=== PATIENT | male | born 1980 | race Caucasian/White ===

== ENCOUNTER 2023-04-28 18:19 | Emergency (ER) | payer OTHER, SELFPAY ==
[2023-04-28] VITALS (20 sets, daily range): BP systolic 121–158; BP diastolic 73–95; PULSE 53–65; RESP 18; TEMP 36.6; O2SAT 96–100; BMI 29.0
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
--- NOTE | 2023-04-28 19:12 | ED.NURSE ---
[facility] paged.
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
--- NOTE | 2023-04-28 21:31 | ED.NURSE ---
pt given water, OK'd per MD
== END 2023-04-28 22:41 | disposition home or self-care (01) ==
PROVIDERS: Emergency Provider Emergency Medicine Emergency Medical Services
DX: S13.4XXA Sprain of ligaments of cervical spine, initial encounter (principal); V43.52XA Car driver injured in collision with other type car in traffic accident, initial encounter; H53.8 Other visual disturbances
CPT/HCPCS: 70450; 70544; 70551; 72125; 99284; 99285; 99291; G0390

== ENCOUNTER 2024-03-29 09:37 | Outpatient (CLI) | payer OTHER, SELFPAY | END 2024-03-29 09:38 | disposition home or self-care (01) | PROVIDERS: Visit Provider Family Medicine | DX: Z00.00 Encounter for general adult medical examination without abnormal findings (principal); R73.9 Hyperglycemia, unspecified; S06.9XAA Unspecified intracranial injury with loss of consciousness status unknown, initial encounter | CPT/HCPCS: 80053; 80061 ==

== ENCOUNTER 2024-04-16 11:19 | Outpatient (CLI) | payer OTHER, SELFPAY ==
--- NOTE | 2024-04-16 12:28 | W.ANESCHARGE ---
Anesthesia Charges Start Date/Time Anesthesia Start Date: 04/16/24 Anesthesia Start Time: 11:55 Stop Date/Time Anesthesia Stop Date: 04/16/24 Anesthesia Stop Time: 12:26
--- NOTE | 2024-04-16 12:35 | W.ANESCHARGE ---
Anesthesia Charges Start Date/Time Anesthesia Start Date: 04/16/24 Anesthesia Start Time: 11:55 Stop Date/Time Anesthesia Stop Date: 04/16/24 Anesthesia Stop Time: 12:26
== END 2024-04-16 11:20 | disposition home or self-care (01) ==
PROVIDERS: PCP Family Medicine; Visit Provider Surgery
DX: Z12.11 Encounter for screening for malignant neoplasm of colon (principal); D12.8 Benign neoplasm of rectum; K57.30 Diverticulosis of large intestine without perforation or abscess without bleeding
CPT/HCPCS: 00811; 45385; 88305; J2704

== ENCOUNTER 2024-05-07 15:45 | Outpatient (CLI) | payer OTHER, SELFPAY | END 2024-05-07 15:46 | disposition home or self-care (01) | LOC: NFLDREF 05-10 11:49 | PROVIDERS: PCP Family Medicine; Visit Provider Family Medicine | DX: E11.9 Type 2 diabetes mellitus without complications (principal) | CPT/HCPCS: 82043; 82570 ==

== ENCOUNTER 2024-06-18 16:29 | Outpatient (CLI) | payer OTHER, SELFPAY | END 2024-06-18 16:30 | disposition home or self-care (01) | PROVIDERS: PCP Family Medicine; Visit Provider Family Medicine | DX: D64.9 Anemia, unspecified (principal); E11.9 Type 2 diabetes mellitus without complications; I10 Essential (primary) hypertension | CPT/HCPCS: 80048; 82607; 82728; 83540 ==

== ENCOUNTER 2024-08-02 14:25 | Outpatient (CLI) | payer OTHER, SELFPAY | END 2024-08-02 14:26 | disposition home or self-care (01) | PROVIDERS: PCP Family Medicine; Visit Provider Family Medicine | DX: D64.9 Anemia, unspecified (principal); E11.9 Type 2 diabetes mellitus without complications; I10 Essential (primary) hypertension; Z12.5 Encounter for screening for malignant neoplasm of prostate; N40.0 Benign prostatic hyperplasia without lower urinary tract symptoms | CPT/HCPCS: 80053; 82728; 83540; 83550; G0103 ==

== ENCOUNTER 2024-09-17 16:57 | Emergency (ER) | payer OTHER, SELFPAY ==
[2024-09-17 17:09] VITALS: BP 147/75; PULSE 86; RESP 16; TEMP 36.9; O2SAT 98; BMI 30.3
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
[2024-09-17] MEDS: SIMETHICONE/SOD BICARB/CIT AC 1 EACH GRAN.EF.PK PO (17:40)
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
--- OUTSIDE RECORDS SUMMARY | 2024-09-17 17:41 | XMS_ITS | Encounter Summary ---
Author Organization [facility] Address [address], [place] [address] Care Team Providers Care Chief Innovation Officer Name Role Phone Unavailable Primary Care Provider Unavailabl e Reason for Visit * Reason Comments Removable Prosthetics Upper denture kelsey l impression Encounter Details Date Type Department Care Team (Late st Contact Info) Description 09/13/2024 12:10 PM CDT Office Visit [facility] Dental [facility] [address] [place] [phone] [facility] [address] [place] [address] Removable Prosthetics (Upper denture final impression) Social History Tobacco Use Types Packs/Day Years Used Date Smoking Tobacco: Every Day Cigarettes Smokeless Tobacco: Never Alcohol Use Standard Drinks/Week Comments No 0 (1 standard drink = 0.6 oz pur e alcohol) PHQ-2 Answer Date Recorded PHQ-2 Score 0 05/05/2023 Financial Resource Strain Answer Date R ecorded Is it hard for you to pay fo r the very basics like food, housing, medical care or heating? Yes 10/25/2023 Food Insecurity Answer Date Recorded Does your food run out before you have the money to buy more? No 10/25/2023 Transportation Needs Answer Date Record ed Does a lack of transportatio n keep you from your medical appointments or from getting your medications? 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 Use care to not bite, scratch, or injure the cheek, lips, or tongue during this time Bleeding Bleeding was controlled prior to discharge, but some occasional oozing (pink or blood-tinged saliva) may occur. Hold gauze with firm pressure against the surgical site until oozing has stopped. You may need to change the gauze or repeat this step. If bleeding continues for more than two hours, contact us. Surgical Site Care Today, do not disturb the surgical site. Do not stretch the lips or cheeks to look at the area. Do not rinse vigorously, use mouthwash, or probe the area with fingers or other objects. Beginning tomorrow, you may rinse with warm salt water (?? teaspoon salt with one cup water) after meals. Sutures Sutures (stitches) were placed to help control bleeding and promote healing. These sutures are no .If the stitches come out during the first 48 hours, call our office. Daily Activities Today, avoid physical exercise and exertion. Return to normal activities as tolerated. Smoking is never good for one???s health and may delay healing following oral surgery. Diet After all bleeding has stopped, the patient may drink cool non-carbonated liquids but should NOT use a straw. Encourage fluids to help avoid dehydration. Cold soft foods (e.g., ice cream, gelatin, Instant Breakfast??, Ensure??, pudding, yogurt) are ideal the first day. By the second day, consistency of foods can progress as tolerated. Until healing is more established, avoid foods such as nuts, sunflower seeds, and popcorn that may get lodged in the surgical areas. Oral Hygiene Keeping the mouth clean is essential. Today, teeth may be brushed and flossed gently, but avoid stimulating the surgical site. Soreness and swelling may not permit vigorous brushing of all areas, butplease make every effort to clean the teeth within the bounds of comfort. Pain Because some discomfort is expected, you may take acetaminophen (Tylenol??) or ibuprofen (Motrin??,Advil??) before the numbness wears off. Follow the instructions on the bottle for dosing. If pain is not relieved by these medications, a prescription may be needed. Take prescription pain medicationwith a small amount of food to avoid nausea. Prescription You were not prescribed any medications today. Things to watch for are: Swelling Slight swelling and inflammation may occur for the next two days. If swelling occurs, ice packs maybe used for the first 24 hours (10 minutes on then 10 minutes off) to decrease swelling and/or bruising. If swelling persists after 24 hours, warm/moist compresses (10 minutes on then 10 minutes off)may help. If swelling occurs after 48 hours, call our office. Fever A slight fever (temperature to 100.5??F) is not uncommon the first 48 hours after surgery. If a higher fever develops or the fever persists, call our office. Dry Socket Premature dissolving or loss of a blood clot following removal of a permanent tooth may result in a???dry socket?? . This typically occurs on the third to fifth day after the extraction, with a persistent throbbing pain in the jaw. Call our office if this occurs. Call your dental clinic at [phone] if you have questions or concerns. [facility] hours [facility] by calling [facility] at [phone], evenings and weekends. documented in this encounter Progress Notes * Daina Edwards DDS - 09/13/2024 12:10 PM CDT DENTAL VISIT NOTE Subjective Reason for Visit/Chief Complaint: Hossein is a 43 y.o. male who presents for Removable Prosthetics (Upper denture final impression) Chief Complaint: Toothache Objective/Assessment Chart Review: The following information was reviewed with the patient: Medical history, Dental history, Problem list, Periodontal charting, and Radiographs. Radiographic Interpretation: #2 Root stump Diagnosis: Encounter for fitting of dentures (primary encounter diagnosis) Prognosis: #2 Hopeless, Maxillary Favorable Plan Treatment Discussion: I discussed the Dental findings, Prognosis, Treatment options, Risks and complications associated with procedure, and Billing/Treatment estimate with the patient. All questions answered and the patient gave informed consent to proceed with dental treatment/services. Procedural Pause: Patient identity verified: Yes Treatment plan/site verified with the patient: Yes Instruments/equipment verified: Yes Any medication/allergy contraindications: No Completed Procedures: Anesthesia: Topical with 20% benzocaine 1.0 carpules 4% septocaine with 1:100,000 epinephrine was administered with infiltration and PDL in#2 No adverse side effects observed. Anesthesia was administered by Daina Edwards DDS . Removable Prosthesis, Preparation and Delivery: Initial placement Patient presented for maxillary immediate denture Final impression made with polyvinyl siloxane material Patient concerns: None Other concerns: None Next visit: Bite registration Consent: Reviewed verbally with the patient Post-Op Instructions: Patient was advised of normal post-operative instructions and potential for post-operative sensitivity Oral Surgical Services, Extraction #2: Preoperative blood pressure was taken and recorded 145/86 P 70 Site of surgery: Verified with the patient Flap: N/A Bone removal: N/A Section: N/A Alveoplasty: No Irrigation: Sterile saline and chlorhexidene Sutures: None Hemostasis obtained Patient tolerated the procedure : Complications: None Postoperative blood pressure was taken and recorded 152/90 P 63 Post-Op Instructions: Reviewed verbally and in writing with the patient: The mouth will be numb approximately two to four hours. If oozing occurs hold gauze with firm pressure against surgical site until oozing has stopped. Contact us if bleeding continues for more than two hours. Do not disturb surgical site Rinse with warm salt water beginning tomorrow after meals. Sutures were placed to help control bleeding and promote healing. Avoid physical exercise and exertion today (resume normal activities as tolerated). Smoking may delay healing. Drink cool non-carbonated liquids (no straws) after all bleeding has stopped. Cold soft foods are ideal first day, consistency of foods can progress by 2nd day as tolerated. Avoid foods such as nuts, sunflower seeds, and popcorn until healing is more established. Teeth may be brushed and flossed gently but avoid stimulating the surgical site. 600 mg Ibuprofen and 1000 mg Acetaminophen at six hour intervals. Advised not to take more than 2400 mg of Ibuprofen or 3000 mg of Acetaminophen in a 24-hour period recommended. No Medications ordered this encounter Care was assisted by Nayana Next Planned Visit: Bite registration Daina Edwards DDS 09/13/2024, 1:19 PM CC: Jeannine documented in this encounter Plan of Treatment Upcoming Encounters Date Type Department Care Team (Late st Contact Info) Description 09/20/2024 12:10 PM CDT Appointment [facility] [address] [place] [phone] Daina Edwards DDS [address] [place] [address] 10/01/2024 12:10 PM CDT Appointment [facility] [address] [place] [phone] Daina Edwards DDS [address] [place] [address] 10/11/2024 10:50 AM CDT Appointment Oral Surgery at [facility] [address] [place] [address] Dick Franklin DDS [address] [place] [address] 10/29/2024 12:10 PM CDT Appointment [facility] [address] [place] [phone] Daina Edwards DDS [address] [place] [address] documented as of this encounter Procedures Procedure Name Priority Date/Time Associated Diagnosis Comments 2 EXTRACTION-ERUPTED TOOTH OR EXPOSED RT Routine 09/13/2024 12:10 PM CDT Retained tooth root Max DENTURE-IMMEDIATE UPPER Routine 09/13/2024 12:10 PM CDT Encounter for fitting of dentures documented in this encounter Visit Diagnoses Diagnosis Encounter for fitting of dentures- Primary Fitting and adjustment of dental prosthetic device Fracture of crown and root of tooth Retained tooth root Retained dental root documented in this encounter
--- OUTSIDE RECORDS SUMMARY | 2024-09-17 17:41 | XMS_ITS | Encounter Summary ---
Author Organization [facility] Address [address] [address] Care Team Providers Care Chief Of Safety And Protection Name Role Phone Unavailable Primary Care Provider Unavailabl e Reason for Visit * Reason Comments Removable Prosthetics Impressions for ma xillary immediate dentures Encounter Details Date Type Department Care Team (Late st Contact Info) Description 09/04/2024 8:10 AM CDT Office Visit [facility] [place] [address] [place] [phone] [facility] [address] [place] [address] Removable Prosthetics (Impressions for maxillary immediate dentures ) Social History Tobacco Use Types Packs/Day Years [...] PM CDT Legal 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 male who presents for Removable Prosthetics (Impressions for maxillary immediate dentures ) Chief Complaint: No CC Objective/Assessment Chart Review: The following information was reviewed with the patient: Medical history, Dental history, Problem list, Periodontal charting, and Radiographs. Diagnosis: Encounter for fitting of dentures (primary encounter diagnosis) Prognosis: Maxillary Favorable Plan Treatment Discussion: I discussed the Dental findings, Prognosis, Treatment options, Risks and complications associated with procedure, and Billing/Treatment estimate with the patient. All questions answered and the patient gave informed consent to proceed with dental treatment/services. Procedural Pause: Patient identity verified: Yes Treatment plan/site verified with the patient: Yes Instruments/equipment verified: Yes Any medication/allergy contraindications: No Completed Procedures: Anesthesia: None used , procedure was minimally invasive. . Removable Prosthesis, Preparation and Delivery: Initial placement Patient presented for maxillary immediate denture Primary impression made with alginate material Patient concerns: None Other concerns: None Next visit: Final impression Consent: N/A Post-Op Instructions: Patient was advised of normal post-operative instructions, potential for post-operative sensitivity, and the need to exercise care because of the risk of fracture Care was assisted by Maria G Next Planned Visit: final Impressions Daina Edwards DDS 09/04/2024, 9:49 AM CC: Jeannine documented in this encounter Plan of Treatment Upcoming Encounters Date Type Department Care Team (Late st Contact Info) Description 09/20/2024 12:10 PM CDT Appointment [facility] [place] [address] [place] [phone] Daina Edwards DDS [address] [place] [id number] 10/01/2024 12:10 PM CDT Appointment [facility] [address] [place] [phone] Daina Edwards DDS [address] [place] [address] 10/11/2024 10:50 AM CDT Appointment Oral Surgery at [facility] [address] [place] [address] Dick Franklin, JENAES [address] [place] [address] 10/29/2024 12:10 PM CDT Appointment [facility] [address] [place] [phone] Daina Edwards DDS [address] [place] [address] documented as of this encounter Procedures Procedure Name Priority Date/Time Associated Diagnosis Comments DENTURE PREP Routine 09/04/2024 8:10 AM CDT Encounter for fitting of dentures DENTURE PREP Routine 09/04/2024 8:10 AM CDT Encounter for fitting of dentures documented in this encounter Visit Diagnoses Diagnosis Encounter for fitting of dentures- Primary Fitting and adjustment of dental prosthetic device documented in this encounter
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
--- OUTSIDE RECORDS SUMMARY | 2024-09-17 17:41 | XMS_ITS | Encounter Summary ---
Author Organization [facility] Address [address] [place] [address] Care Team Providers Care Lamp Shade Assembler Name Role Phone Thor Aguilar MD Primary Care Provider [phone] Encounter Details Date Type Department Care Team (Late Contact Info) Description 08/14/2014 Scanned History External to Transferred Record, Provider [facility] Social History Tobacco Use Types Packs/Day Years Used Date Smoking Tobacco: Every Day Smokeless Tobacco: Current Snuff Alcohol Use Standard Drinks/Week Comments No 0 (1 standard drink = 0.6 oz pur e alcohol) Sex and Gender Information Value Date Recorded Sex Assigned at Male 08/26/2024 11:28 PM CDT 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 Gender Identity Not on file Sexual Orientation Not on file documented as of this encounter Plan of Treatment Upcoming Encounters Date Type Department Care Team ([facility] Contact Info) Description 09/20/2024 12:10 PM CDT Appointment [facility] [address] [place] [phone] Daina Edwards DDS [address] [place] [address] 10/01/2024 12:10 PM CDT Appointment [facility] [address] [place] [phone] Daina Edwards DDS [address] [place], [place] [phone] 10/11/2024 10:50 AM CDT Appointment Oral Surgery at [facility] [address] [facility] [place] [address] Dick Franklin, DDS [address] [place] [address] 10/29/2024 12:10 PM CDT Appointment [facility] Dental [facility] [address] [place] [address] Daina Edwards, DDS [address] [place] [address] documented as of this encounter Visit Diagnoses Not on filedocumented in this encounter Care Teams Lamp Shade Assembler Relationship Specialty [place] [address] [place] [address] PCP - General Family Practice 06/02/23 12/08/23 documented as of this encounter
--- OUTSIDE RECORDS SUMMARY | 2024-09-17 17:41 | XMS_ITS | Encounter Summary ---
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 Gender Identity Not on file Sexual Orientation Not on file 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 Not on file Not on file documented as of this encounter Plan of Treatment Upcoming Encounters Date Type Department Care Team ([facility] Contact Info) Description 09/20/2024 12:10 PM CDT Appointment [facility] [place] [address] [place] [phone] Daina Edwards DDS [address] [place] [address] 10/01/2024 12:10 PM CDT Appointment [facility] [address] [place] [phone] Daina Edwards DDS [address] [place] [address] 10/11/2024 10:50 AM CDT Appointment Oral Surgery at [facility] [address] [address] Dick Franklin, JENAES [address] [place] [address] 10/29/2024 12:10 PM CDT Appointment [facility] [address] [place] [phone] Daina Edwards DDS [address] [place], [place] [phone] documented as of this encounter Visit Diagnoses Not on filedocumented in this encounter
--- OUTSIDE RECORDS SUMMARY | 2024-09-17 17:41 | XMS_ITS | Encounter Summary ---
Author Organization [facility] Address [address] [place] [address] Care Team Providers Care Paper Box Maker Name Role Phone Thor Aguilar MD Primary Care Provider [phone] Encounter Details Date Type Department Care Team ([facility] Contact Info) Description 07/01/2014 [facility] [address] [place] [address]. 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 Contact Info) Description 09/20/2024 12:10 PM CDT Appointment [facility] [address] [place] [phone] Daina Edwards DDS [address] [place], [place] [phone] 10/01/2024 12:10 PM CDT [facility] [address] [place] [address] Daina Edwards DDS [address] [place] [address] 10/11/2024 10:50 AM CDT Appointment Oral Surgery at [facility] [address] [address] Dick Franklin, DDS [address] [place] [address] 10/29/2024 12:10 PM CDT Appointment [facility] [address] [place] [address] Daina Edwards DDS [address] [place] [address] documented as of this encounter Visit Diagnoses Not on filedocumented in this encounter Care Teams Paper Box Maker Relationship Specialty [place] [address] [place] [address] PCP - General Family Practice 06/02/23 12/08/23 documented as of this encounter
--- OUTSIDE RECORDS SUMMARY | 2024-09-17 17:41 | XMS_ITS | Referral Summary ---
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 complex, unchanged. No spinal canal stenosis.Left uncovertebral hypertrophy and facet arthropathy. Moderate left neuralforaminal stenosis, unchanged. No right neural foraminal stenosis. C5-6: Trace disc osteophyte complex, unchanged. No spinal canal stenosis.Bilateral uncovertebral hypertrophy and facet arthropathy. Moderate rightand severe left neural foraminal stenosis, unchanged. C6-7: Disc osteophyte complex produces mass effect on the ventral thecalsac, unchanged. No significant spinal canal stenosis. Bilateraluncovertebral hypertrophy. Mild bilateral neural foraminal stenosis,unchanged. C7-T1: No spinal canal stenosis. Left uncovertebral hypertrophy. Mild leftneural foraminal stenosis. Improved, likely due to differences intechnique. No right neural foraminal stenosis. T1-2: No spinal canal or neural foraminal stenosis. T2-3: Disc osteophyte complex produces mass effect on ventral thecal sacwithout flattening the ventral cervical cord. Mild spinal canal stenosis.Bilateral facet arthropathy. Mild to moderate left neural foraminalstenosis. No right neural foraminal stenosis. IMPRESSION 1. Multilevel degenerative changes, as detailed above. No significantinterval progression. 2. No significant spinal canal stenosis at any cervical level. There ismild spinal canal stenosis at T2-3. 3. Moderate to severe multilevel neural foraminal stenosis, as detailedabove, unchanged. 4. Normal appearance of the cervical and upper thoracic spinal cord. Report signed by Pola Marin MD Juan Hernández MD MRI ORDERABLE Final Result * MRI BRAIN W/O&W CON (07/31/2024 6:46 PM MEDICAL DEVICE) Anatomical Region Laterality Modality Head Magnetic Resonan ce 08/01/2024 10:5 9 AM MEDICAL DEVICE Impressions 08/01/2024 11:04 AM MEDICAL DEVICE No significant intracranial abnormality is demonstrated, no interval change. Report signed by: Pola Marin MD Narrative 08/01/2024 11:04 AM MEDICAL DEVICE EXAM: BRAIN MRI WITHOUT AND WITH CONTRAST, 07/31/2024 CLINICAL DATA: ICD-10: M79.18 Myalgia, other site R20.9 Unspecified disturbances of skin sensation M62.81 Muscle weakness (generalized) COMPARISON: Outside MRI 06/28/2023 TECHNIQUE: Precontrast sagittal FLAIR T1; axial FLAIR T2, fat saturated FSE T2, DWI, T1, GRE. Postcontrast axial and coronal T1. CONTRAST: 9 ml Gadavist IV. FINDINGS: PARENCHYMA: No evidence of infarction. No significant white matter signal abnormality. No parenchymal hemorrhage. No mass or midline shift. Cerebellar tonsils are normally located. Normal parenchymal volume. No abnormal parenchymal or leptomeningeal enhancement. EXTRA-AXIAL SPACES: No extra-axial collection. No extra-axial mass. VENTRICLES: No hydrocephalus. VESSELS: The flow voids are normal. BONES: Unremarkable. ORBITS: No significant abnormality. PARANASAL SINUSES/MASTOID AIR CELLS: Predominantly clear. EXTRACRANIAL SOFT TISSUES: Unremarkable. Procedure Note Pola Marin MD - 08/01/2024 EXAM: BRAIN MRI WITHOUT AND WITH CONTRAST, 07/31/2024 CLINICAL DATA: ICD-10: M79.18 Myalgia, other site R20.9 Unspecified disturbances of skinsensation M62.81 Muscle weakness (generalized) COMPARISON: Outside MRI 06/28/2023 TECHNIQUE: Precontrast sagittal FLAIR T1; axial FLAIR T2, fat saturatedFSE T2, DWI, T1, GRE. Postcontrast axial and coronal T1. CONTRAST: 9 ml Gadavist IV. FINDINGS: PARENCHYMA: No evidence of infarction. No significant white matter signal abnormality.No parenchymal hemorrhage. No mass or midline shift. Cerebellar tonsilsare normally located. Normal parenchymal volume. No abnormal parenchymalor leptomeningeal enhancement. EXTRA-AXIAL SPACES: No extra-axial collection. No extra-axial mass. VENTRICLES: No hydrocephalus. VESSELS: The flow voids are normal. BONES: Unremarkable. ORBITS: No significant abnormality. PARANASAL SINUSES/MASTOID AIR CELLS: Predominantly clear. EXTRACRANIAL SOFT TISSUES: Unremarkable. IMPRESSION No significant intracranial abnormality is demonstrated, no intervalchange. Report signed by: Pola Marin MD Juan Hernández MD MRI ORDERABLE Final Result from Last 3 Months Insurance [employer] OPEN ACCESS/CHOICE MAURICE MARCIAL [id number] Care Teams Living Skills Advisor Relationship Specialty Start Date End Date David Lehman [address] [place] [address] PCP - General 05/10/24 Juan Hernández MD [address] [facility] [address] [place] [address] Neurology 05/10/24
--- OUTSIDE RECORDS SUMMARY | 2024-09-17 17:41 | XMS_ITS | Encounter Summary ---
Author Organization [facility] Address [address] [place] [address] Care Team Providers Care Area Cleaner Name Role Phone David Lehman Primary Care Provider [phone] Juan Hernández MD Unavailable [phone] Encounter Details Date Type Department Care Team (Latest Contact Info) Description 09/06/2024 1:00 PM CDT Ancillary Procedure [address] [place] [address] Diffuse myofascial pain syndrome; Skin sensation disturbance; Muscle weakness Social History Tobacco Use Types Packs/Day Years [...] as of this encounter Plan of Treatment Not on file documented as of this encounter Procedures Procedure Name Priority Date/Time Associated Diagnosis Comments EMG 2 EXTREMITY Routine 09/06/2024 1:49 PM CDT Diffuse myofascial pain syndrome Skin sensation disturbance Muscle weakness documented in this encounter Results * EMG 2 EXTREMITY (09/06/2024 1:49 PM CDT) Narrative Juan Hernández MD - 09/06/2024 4:55 PM CDT Table formatting from the original result was not included. Images from the original result were not included. [facility] [address] [place] [id number] Opt 2 Electromyography (EMG) Study Test Date: 09/06/2024 Patient: Hossein Melendez Electromyographer: Juan Hernández MD : 1980 Quality Compliance Coordinator: Helen Sex: Male Ref Phys: Juan Hernández MD Location: [place] Patient Symptoms/Indication for EMG: Patient is a 43 year-old who presents with left arm and hand numbness. Testing was performed by the [facility]'s EMG equipment and supplies. E EMG & NCV Findings: Evaluation of the [...] Electronically Signed By: Juan Hernández MD Neurologist, [facility] 4:55 PM 09/06/2024 Nerve [...] 0 Nml Nml Nml Nml 0 Waveforms: us Juan Hernández MD EMG ORDERABLE Final Result documented in this encounter Visit Diagnoses Diagnosis Diffuse myofascial pain syndrome Mylagia and myositis, unspecified Skin sensation disturbance Disturbance of skin sensation Muscle weakness Muscle weakness (generalized) documented in this encounter Care Teams Area Cleaner Relationship Specialty Start Date End Date David Lehman [address] [place] [address] PCP - General 05/10/24 Juan Hernández MD [address] [place] [address] Neurology 05/10/24 documented as of this encounter
--- OUTSIDE RECORDS SUMMARY | 2024-09-17 17:41 | XMS_ITS | Encounter Summary ---
[facility] Address [address] [place] [address] Care Team Providers Care Carrier Driver Name Role Phone Unavailable Primary Care Provider Unavailabl e Reason for Visit * Reason Comments Refill sildenafil (VIAGRA) 25 MG tablet [Pharmacy Med Name: SILDENAFIL 25 MG TABLET] Encounter Details Date Type Department Care Team (Late st Contact Info) Description 08/17/2024 Refill [place] [address] [facility] [address] [place] [phone] Cielo Agee PA-C [address] [place] [address] Refill (sildenafil (VIAGRA) 25 MG tablet [Pharmacy Med Name: SILDENAFIL 25 MG TABLET]) Social History Tobacco Use Types Packs/Day Years [...] PM CDT 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 * Costa Louie MD - 08/21/2024 5:55 PM CDT I did refill, but would recommend follow up to discuss dose. * Jenny Flowers RN - 08/21/2024 4:51 PM CDT Further Assistance Needed on Refill from Clinician RN reviewed. Signed order needed. Requested medication needs an order signed by an authorized prescriber. Last qualifying visit: 12/30/23 with COSTA LOUIE Next scheduled visit: None Review pended order for accuracy. Sign if appropriate. Document if appointment is needed for further refills. Route to care team to notify patient if needed. Requested Prescriptions Pending Prescriptions Disp Refills sildenafil (VIAGRA) 25 MG tablet [Pharmacy Med Name: SILDENAFIL 25 MG TABLET] 120 Tablet Sig: TAKE 1-4 TABLETS 1 HOUR BEFORE SEXUAL ACTIVITY ON AN EMPTY STOMACH. MAX 4 TABS/24 HOURS * Tonny Royal Xrwcomm - 08/17/2024 6:14 PM CDT sildenafil (VIAGRA) 25 MG tablet [Pharmacy Med Name: SILDENAFIL 25 MG TABLET] Medication started: 06/24/2023 Last ordered by CIELO AGEE E: 05/09/2024 (100 days ago) QTY: 120, Refills: 2, Sig: take 1-4 tablets 1 hour before sexual activity on an empty stomach. max 4 tabs/24 hours (unchanged) -> No nitrate use -> A qualifying visit was not found within the last 2 years. Last qualifying visit: None (A recent visit (in Family Practice with COSTA LOUIE) was found) Next scheduled visit: None [facility] Embedded Refills, Reference: [id number], 08/17/2024 6:14:29 PM CDT, Pool: DEBBI [place] [facility] - Primary Care [[id number]] ([id number]) documented in this encounter Plan of Treatment Upcoming Encounters Date Type Department Care Team (Late st Contact Info) Description 09/20/2024 12:10 PM CDT Appointment [facility] [address] [place] [address] Daina Edwards DDGreg [address] [place], [place] [id number] 10/01/2024 12:10 PM CDT Appointment [facility] [address] [place] [address] Daina Edwards DDS [address] [place] [address] 10/11/2024 10:50 AM CDT Appointment Oral Surgery at [facility] [address] [address] Dick Franklin, KAYLA [address] [place] [address] 10/29/2024 12:10 PM CDT Appointment [facility] [address] [place] [address] Daina Edwards DDS [address] [place] [address] documented as of this encounter Visit Diagnoses Diagnosis Erectile dysfunction, unspecified erectile dysfunction type documented in this encounter
--- OUTSIDE RECORDS SUMMARY | 2024-09-17 17:41 | XMS_ITS | Encounter Summary ---
Author Organization [facility] Address [address] [place] [address] Care Team Providers Care Oil Exploration Engineer Name Role Phone Unavailable Primary Care Provider Unavailabl e Reason for Referral * Dental (Routine) - New Request Specialty Diagnoses / Procedures Referred By Funmilayo hardy Referred To Contact Diagnoses Retained tooth root Daina Edwards DDS [address] [place] [address] Phone: tel: fax: Referral ID Status Reason Start Date Expiration Date V isits Requested Visits Authorized [id number] New Request 08/27/2024 11/26/2025 1 1 Scheduling Instructions Your clinician has recommended an appointment with an oral surgeon within [facility]. You may call one of the clinics below to schedule an appointment. [facility] - [phone] [facility] [phone] [place] [phone] Question Answer Reason for Visit: Extraction, Pre-prosthetic Extraction Department: Oral Surgery Appointment Urgency: Non-Urgent Treatment Requested Ext of all maxillary teeth and insert immediate dentures Last SANCHEZ film 08/27/2024 Comments Please evaluate and extract all remaining teeth # 2,8,9,13,14,15 I have to start prepping for dentures please do the initial consult pt would like some sedation Daina Walden Reason for Visit * Reason Comments Problem Focused Exam Pain upper right an d upper front Encounter Details Date Type Department Care Team ([facility] Contact Info) Description 08/27/2024 12:10 PM CDT [facility] [place] [address] [place] [address] Daina Edwards DDS [address] [place] [address] Problem Focused Exam (Pain upper right and upper front ) Social History Tobacco Use Types Packs/Day [...] PM CDT 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 male who presents for Problem Focused Exam (Pain upper right and upper front ) Chief Complaint: Pain upper right and upper front pt points to # 2 and # 9 going on for few days Pain Assessment: Current level of pain: 6/10 Worst pain level associated with this problem: 9/10 Location of pain: Maxillary right and Maxillary anterior Nature of pain: Throbbing, Well localized Eliciting factors: Pressure, Chewing Duration: Days Alleviating factors: Not taking anything Swelling: Location: # 2 , Duration: days Objective/Assessment The following information was reviewed with the patient: Medical history, Dental history, and Radiographs. Radiographic Interpretation: #2, #9 Periapical radiolucency Diagnosis: Retained tooth root (primary encounter diagnosis) Periodontitis chronic, apical Prognosis: #2, #9 Hopeless Sinus tract on he palatal of # 2 no extraoral swelling or lymphadenopathy Discussed that most of his teeth are non restorable discussed treatment planning recommended doing immediate dentures pt is wearing his partial but its ill fitting Referral given to O.S for extractions and immediate denture placement and treatment planned immediate dentures ANTIBIOTIC PRECAUTIONS: Reviewed verbally with the patient Take as prescribed, even if symptoms improve, to get the most benefit from this antibiotic. This medication may be taken with or without food. Take with food or milk if you experience nausea while taking this drug. Stop taking medication and seek immediate medical attention in case of a serious allergic reaction (i.e. rash; hives; itching; shortness of breath; wheezing; cough; and/or swelling of the face, lips,tongue or throat). Call your physician or dentist immediately if you experience very loose or watery stools, or bloodystools as this be an indication of a serious medical condition. Plan I discussed the Dental findings, Prognosis, Treatment options, Risks and complications associated with procedure, and Billing/Treatment estimate with the patient. All questions answered and they expressed understanding. Procedural Pause: Patient identity verified: Yes Treatment plan/site verified with the patient: Yes Instruments/equipment verified: Yes Any medication/allergy contraindications: No Completed Procedures: Anesthesia: None used Limited Oral Exam Care was assisted by Maria G Arzola Planned Visit: Impressions for denture No Medications ordered this encounter CC: Jeannine documented in this encounter Plan of Treatment Upcoming Encounters Date Type Department Care Team (Late st Contact Info) Description 09/20/2024 12:10 PM CDT Appointment [facility] [id number] [place] [phone] Daina Edwards DDS [id number] [place] [id number] 10/01/2024 12:10 PM CDT Appointment [address] [phone] Daina Edwards, DDS [address] [place] [address] 10/11/2024 10:50 AM CDT Appointment Oral Surgery at [facility] [address] [address] Dick Franklin, DDS [address] [place] [address] 10/29/2024 12:10 PM CDT Appointment [facility] [address] [place] [address] Daina Edwards DDS [address] [place] [address] Scheduled Orders Name Type Priority Associated Diagnoses Orde r Schedule DENTURE RETURN VISIT Dental Procedures Routine 1 Occurrences starting 08/27/2024 DENTURE RETURN VISIT Dental Procedures Routine 1 Occurrences starting 08/27/2024 DENTURE RETURN VISIT Dental Procedures Routine 1 Occurrences starting 08/27/2024 DENTURE RETURN VISIT Dental Procedures Routine 1 Occurrences starting 08/27/2024 DENTURE RETURN VISIT Dental Procedures Routine 1 Occurrences starting 08/27/2024 DENTURE RETURN VISIT Dental Procedures Routine 1 Occurrences starting 08/27/2024 Scheduled Referrals Name Type Priority Associated Diagnoses Orde r Schedule Oral Surgery Consult Referral Routine Retained tooth root Ordered: 08/27/2024 documented as of this encounter Procedures Procedure Name Priority Date/Time Associated Diagnosis Comments FILM-PANORAMIC Routine 08/27/2024 12:10 PM CDT Retained tooth root Periodontitis chronic, apical LIMITED ORAL EVALUATION Routine 08/28/19 12:10 PM CDT Retained tooth root Periodontitis chronic, apical documented in this encounter Visit Diagnoses Diagnosis Retained tooth root- Primary Retained dental root Periodontitis chronic, apical Chronic apical periodontitis documented in this encounter
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
--- OUTSIDE RECORDS SUMMARY | 2024-09-17 17:41 | XMS_ITS | Clinical Summary ---
Author Organization [facility] Address [address] [place] [address] Care Team Providers Care Senior Occupational Therapist Name Role Phone No Ref-Primary, Physician Primary Care Provider Allergies No known active allergies Medications oxyCODONE-aceta minophen (PERCOCET) 5-325 MG per tablet Take 2 tablets by mouth every 6 hours as needed for pain 15 tablet 0 3 Active metoclopramide (REGLAN) 10 MG tablet Take 1 tablet (10 mg) by mouth 3 times daily as needed (Nausea or Vomiting) 20 tablet 9 Active albuterol (PROAIR HFA/PROVENTIL HFA/VENTOLIN HFA) 108 (90 Base) MCG/ACT inhaler Inhale 2-4 puffs into the lungs every 2 hours as needed for shortness of breath / dyspnea 1 Inhaler 1 9 Active Social History Tobacco Use Types Packs/Day Years Used Date Smoking Tobacco: Every Day Cigarettes Alcohol Use Standard Drinks/Week Comments No 0 (1 standard drink = 0.6 oz pur e alcohol) AUDIT-C Answer Date Recorded Frequency of Alcohol Consumption Never 08/03/2018 Average Number of Drinks Not on file 019 Frequency of Binge Drinking Not on file 11/2018 Sex and Gender Information Value Date Recorded Sex Assigned at Not on file Legal Sex Male 4:10 AM LIVE IN COMP[employer] Gender Identity Not on file Sexual Orientation Not on file Last Filed Vital Signs Vital Sign Reading Time Taken Comments Blood Pressure 122/70 08/03/2018 6:30 PM [employer] IN COMP[employer] Pulse 46 08/03/2018 6:30 PM [employer]IVE IN COMP[employer] Temperature 36.4 C (97.5 F) 08/03/2018 12:21 PM [employer] IN COMP[employer] Respiratory Rate 28 08/03/2018 6:30 PM [employer]IVE IN COMP[employer]ION Oxygen Saturation 97% 08/03/2018 6:30 PM [employer]IVE IN COMP[employer]ION Inhaled Oxygen Concentration - - Weight 112.5 kg (248 lb 0.3 oz) 019 12:21 PM [employer] COMP[employer] Height 185.4 cm (6' 1) 08/03/2018 12:2 1 PM [employer] Body Mass Index 32.72 08/03/2018 12:21 PM [employer]IVE [employer] COMP[employer] Plan of Treatment Not on file Care Teams Senior Occupational Therapist Relationship Specialty Start Date End Date No Ref-Primary, Physician PCP - General 01/03/13
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
--- OUTSIDE RECORDS SUMMARY | 2024-09-17 17:41 | XMS_ITS | Encounter Summary ---
Author Organization [facility] Address [address] [place] [address] Care Team Providers Care Weight Yardage Checker Name Role Phone David Lehman Primary Care Provider Juan Hernández MD Unavailable [phone] Encounter Details Date Type Department Care Team (Latest Contact Info) Description 09/06/2024 2:15 PM CDT Ancillary Procedure [facility] Neu[facility] [address] [place] [address] Diffuse myofascial pain syndrome; Skin sensation disturbance; [...] weakness documented in this encounter Results * EEG AWAKE AND DROWSY ROUTINE (09/06/2024 2:51 PM CDT) Anatomical Region Laterality Modality Magnetic Resonan ce Narrative 09/06/2024 5:07 PM CDT Table formatting from the original result was not included. PATIENT NAME: Hossein Melendez LOCATION: [place] TEST DATE: 09/06/2024 : 1980 TECH NAME: [...] Electronically signed By: Juan Hernández MD Neurologist, [facility] 5:07 PM 09/06/2024 Juan Hernández MD EEG ORDERABLE Final Result documented in this encounter Visit Diagnoses Diagnosis Diffuse myofascial pain syndrome Mylagia and myositis, unspecified Skin sensation disturbance Disturbance of skin sensation Muscle weakness Muscle weakness (generalized) documented in this encounter Care Teams Weight Yardage Checker Relationship Specialty Start Date End Date David Lehman [address] [place] [address] PCP - General 05/10/24 Juan Hernández MD [address] [place] [address] [address] [place] [address] Neurology 05/10/24 documented as of this encounter
--- OUTSIDE RECORDS SUMMARY | 2024-09-17 17:41 | XMS_ITS | Encounter Summary ---
Author Organization [facility] Address [address] [place] [address] Care Team Providers Care Steamfitter Name Role Phone Unavailable Primary Care Provider Unavailabl e Reason for Visit * Reason Comments Refill sildenafil (VIAGRA) 25 MG tablet [Pharmacy Med Name: SILDENAFIL 25 MG TABLET] Encounter Details Date Type Department Care Team (Late st Contact Info) Description 09/10/2024 Refill [place] [address] [facility] [address] [place] [phone] [place] [address] [place] [address] Refill (sildenafil (VIAGRA) 25 MG [...] PM CDT Legal Sex Male 8:01 AM POST PARTUM NURSE Gender Identity Not on file Sexual Orientation Not on file 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 Requested Prescriptions Pending Prescriptions Disp Refills ??? sildenafil (VIAGRA) 25 MG tablet [Pharmacy Med Name: SILDENAFIL 25 MG TABLET] 45 Tablet 5 Sig: TAKE 1-4 TABLETS 1 HOUR BEFORE SEXUAL ACTIVITY ON AN EMPTY STOMACH. MAX 4 TABLETS IN 24 HOURS. * Tonny Royal [employer]rw[employer] - 09/10/2024 1:39 PM CDT sildenafil (VIAGRA) 25 MG tablet [Pharmacy Med Name: SILDENAFIL 25 MG TABLET] Medication started: 06/24/2023 Last ordered by COSTA LOUIE: 08/21/2024 (20 days ago) QTY: 30, Refills: 3, Sig: take 1-4 tablets 1 hour before sexual activity on an empty stomach. max 4 tabs/24 hours (changed but equivalent) -> No nitrate use -> Refill x 6 months (until due for an office visit) -> Calculate the quantity and number of refills manually. Last qualifying visit: 12/30/2023 (with COSTA LOUIE) Next scheduled visit: None [facility] [employer] [facility] Ref[facility], Reference: [id number], 09/10/2024 1:39:39 PM CDT, Pool: PN Refill Centralized Services - Primary Care [[id number]] ([id number]) documented in this encounter Plan of Treatment Upcoming Encounters Date Type Department Care Team (Late st Contact Info) Description 09/20/2024 12:10 PM CDT Appointment [facility] [address] [place] [phone] Daina Edwards DDS [address] [place] [address] 10/01/2024 12:10 PM CDT Appointment [address] [phone] Daina Edwards DDS [address] [place], [place] [phone] 10/11/2024 10:50 AM CDT Appointment Oral Surgery at [facility] [address] [address] Dick Franklin, KAYLA [address] [place] [address] 10/29/2024 12:10 PM CDT Appointment [facility] [address] [place] [phone] Daina Edwards DDS [address] [place], [place] [phone] documented as of this encounter Visit Diagnoses Diagnosis Erectile dysfunction, unspecified erectile dysfunction type documented in this encounter
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
== END 2024-09-17 18:59 | disposition home or self-care (01) ==
PROVIDERS: Emergency Provider Family Medicine; PCP Family Medicine
DX: S27.818A Other injury of esophagus (thoracic part), initial encounter (principal)
CPT/HCPCS: 80306; 87177; 87209; 99283; 99284

== ENCOUNTER 2024-09-18 08:00 | Outpatient (CLI) | payer OTHER, SELFPAY | END 2024-09-18 08:01 | disposition home or self-care (01) | LOC: NFLDREF 09-23 06:57 | PROVIDERS: PCP Family Medicine; Referring Provider Family Medicine; Visit Provider Family Medicine | DX: B83.9 Helminthiasis, unspecified (principal) | CPT/HCPCS: 87505 ==

== ENCOUNTER 2024-09-22 16:16 | Emergency (ER) | payer OTHER, SELFPAY ==
--- OUTSIDE RECORDS SUMMARY | 2024-09-22 16:19 | XMS_ITS | Clinical Summary ---
Author Organization [facility] Address [address] [place] [address] Care Team Providers Care Brokerage Branch Manager Name Role Phone Clinic, No Pcp Or [...] Encounters Date Type Department Care Team Description 09/21/2024 12:00 PM CDT - 09/21/2024 11:59 PM CDT Hospital Encounter [facility] [address] [place] [address] Kalyan Batres MD Johnson, Claire, JEANNINE 09/14/2024 12:00 PM CDT - 09/14/2024 11:59 PM CDT Hospital Encounter [facility] [address] [place] [address] Kalyan Batres MD Johnson, Claire, OT 09/10/2024 12:45 PM CDT - 09/10/2024 11:59 PM CDT Hospital Encounter [facility] [address] [place] [address] Kalyan Batres MD Johnson, Claire, JEANNINE 09/07/2024 12:00 PM CDT - 09/07/2024 11:59 PM CDT Hospital Encounter [facility] [address] [place] [address] Kalyan Batres MD Johnson, Claire, OT 09/07/2024 Travel 09/03/2024 12:45 PM CDT - 09/03/2024 11:59 PM CDT Hospital Encounter [facility] [address] [place] [address] Kalyan Batres MD Johnson, Claire, OT 08/27/2024 2:15 PM CDT - 08/27/2024 11:59 PM CDT Hospital Encounter [facility] [address] [place] [address] Kalyan Batres MD Johnson, Claire, OT 08/07/2024 10:00 AM CDT Office Visit [facility] [address] [place] [address] Teodoro Larson, PhD, LP 08/07/2024 Travel 08/03/2024 12:00 PM MACHINE WELDER - 08/03/2024 11:59 PM MACHINE WELDER Hospital Encounter [facility] [address] [place] [address] Kalyan Batres MD Johnson, Claire, OT 08/03/2024 Travel 07/24/2024 1:00 PM MACHINE WELDER Office Visit [facility] [address] [place] [address] Teodoro Larson, PhD, 07/23/2024 11:43 AM MACHINE WELDER - 07/23/2024 11:59 PM MACHINE WELDER Hospital Encounter [facility] [address] [place] [address] Kalyan Batres MD Johnson, Claire, OT 07/23/2024 Travel 07/20/2024 12:00 PM MACHINE WELDER - 07/20/2024 11:59 PM MACHINE WELDER Hospital Encounter [facility] [address] [place] [address] Kalyan Batres MD Johnson, Claire, OT 07/20/2024 Travel 07/16/2024 11:00 AM MACHINE WELDER - 07/16/2024 11:59 PM MACHINE WELDER Hospital Encounter [facility] [address] [place] [address] Kalyan Batres MD Johnson, Claire, OT 07/13/2024 12:00 PM MACHINE WELDER - 07/13/2024 11:59 PM MACHINE WELDER Hospital Encounter [facility] [address] [place] [address] Kalyan Batres MD Johnson, Claire, OT 07/13/2024 Travel 07/09/2024 1:15 PM MACHINE WELDER - 07/09/2024 11:59 PM MACHINE WELDER [facility] [address] [place] [address] Kalyan Batres MD Johnson, Claire, OT 07/02/2024 11:45 AM MACHINE WELDER - 07/02/2024 11:59 PM MACHINE WELDER [facility] [address] [place] [address] Kalyan Batres MD Johnson, Claire, OT 06/29/2024 12:00 PM MACHINE WELDER - 06/29/2024 11:59 PM MACHINE WELDER Hospital Encounter [facility] [address] [place] [address] Referring, Provider Sakshi Santos, OT 06/29/2024 Travel 06/25/2024 11:45 AM MACHINE WELDER - 06/25/2024 11:59 PM MACHINE WELDER Hospital Encounter [facility] [address] [place] [address] Referring, Provider Sakshi Santos, OT from Last 3 Months Social History Tobacco Use Types Packs/Day Years Used Date Smoking Tobacco: Never Smokeless Tobacco: Never Sex and Gender Information Value Date Recorded Sex Assigned at Not on file Legal Sex Male 6:58 PM MACHINE WELDER Gender Identity Not on file Sexual Orientation [...] Care Team (Late st Contact Info) Description 09/24/2024 12:45 PM CDT [facility] [address] [facility] [address] [place] [address] Sakshi Santos, OT [address] [facility] [address] [place] [address] 09/28/2024 12:00 PM CDT Appointment [facility] [address] [facility] [address] [place] [address] Sakshi Santos OT [address] [address] 10/10/2024 11:30 AM CDT Office Visit [facility] [address] [place] [address] [place] [address] [facility] [address] [place] [address] 12/05/2024 2:20 PM CDT Office Visit [facility] [address], [place] [address] [place] [address] [facility] [address] [place] [address] Health Maintenance Due Date Last Done Comments [...] patient's age to complete this topic Insurance [employer] [place]IKET [place] [id number] [employer] [place]IK[employer] [place] [id number] Care Teams Brokerage Branch Manager Relationship Specialty Start Date End Date Clinic, No Pcp Or . PCP - General 10/04/20
--- OUTSIDE RECORDS SUMMARY | 2024-09-22 16:20 | XMS_ITS | Encounter Summary ---
Author Organization [facility] Address [address], [place] [address] Care Team Providers Care Supervisor Warping Department Name Role Phone Unavailable Primary Care Provider Unavailabl e Reason for Visit * Reason Comments Removable Prosthetics Bite registration Encounter Details Date Type Department Care Team (Late st Contact Info) Description 09/20/2024 10:40 AM CDT Office Visit [facility] [place] [phone] [place] [phone] Daina Edwards, DDS [address] [place] [address] Removable Prosthetics (Bite registration ) Social History Tobacco Use Types Packs/Day [...] PM CDT Legal Sex Male 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 male who presents for Removable Prosthetics (Bite registration ) Chief Complaint: No CC Objective/Assessment Chart Review: The following information was reviewed with the patient: Medical history, Dental history, Problem list, Periodontal charting, and Radiographs. Diagnosis: Encounter for fitting of dentures (primary encounter diagnosis) Prognosis: Mandibular Favorable Plan Treatment Discussion: I discussed the [...] placement Patient presented for maxillary immediate denture Bite registration made with polyvinyl siloxane material : Shade: A2 Portrait IPN Trubite Alameter reading 36 and Papillameter reading 10 mm Patient concerns: None Other concerns: None Next visit: Wax try-in Consent: N/A Post-Op Instructions: Patient was advised of normal post-operative instructions and potential for post-operative sensitivity Care was assisted by Maria G Next Planned Visit: Wax Try in Daina Edwards DDS 09/20/2024, 10:49 AM ' CC: Jeannine documented in this encounter Plan of Treatment Upcoming Encounters Date Type Department Care Team (Late st Contact Info) Description 10/01/2024 12:10 PM CDT Appointment [facility] [place] [address] [place] [phone] Daina Edwards DDS [address] [place] [address] 10/10/2024 11:00 AM CDT Appointment [facility] [address] [place] [phone] Daina Edwards DDS [address] [place] [address] 10/11/2024 10:50 AM CDT Appointment [facility] [address] [place] [address] Daina Edwards DDS [address] [place] [address] 10/29/2024 12:10 PM CDT Appointment [facility] [address] [place] [address] Daina Edwards DDS [address] [place] [address] documented as of this encounter Procedures Procedure Name Priority Date/Time Associated Diagnosis Comments DENTURE RETURN VISIT Routine 09/20/2024 10:40 AM CDT Encounter for fitting of dentures DENTURE RETURN VISIT Routine 09/20/2024 10:40 AM CDT Encounter for fitting of dentures documented in this encounter Visit Diagnoses Diagnosis Encounter for fitting of dentures- Primary Fitting and adjustment of dental prosthetic device documented in this encounter
--- OUTSIDE RECORDS SUMMARY | 2024-09-22 16:20 | XMS_ITS | Encounter Summary ---
Author Organization [facility] Address [address] [address] Care Team Providers Care Snow Plow Tractor Operator Name Role Phone Unavailable Primary Care Provider Unavailabl e Reason for Visit * Reason Comments Removable Prosthetics Upper denture kelsey l impression Encounter Details Date Type Department Care Team (Late st Contact Info) Description 09/13/2024 12:10 PM CDT Office Visit [facility] Dental [facility] [id number] [place] [phone] [facility] [address] [place] [address] Removable Prosthetics (Upper denture final [...] PM CDT Legal Sex Male 8:01 AM 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 Call your dental clinic at [phone] if you have questions or concerns. After hours care is available from a [facility] by calling [facility] at [phone], evenings and weekends. documented in this encounter [...] this encounter Care was assisted by Nayana Arzola Planned Visit: Bite registration Daina Edwards DDS 09/13/2024, 1:19 PM CC: Jeannine documented in this encounter Plan of Treatment Upcoming Encounters Date Type Department Care Team (Late st Contact Info) Description 10/01/2024 12:10 PM CDT Appointment [facility] [address] [place] [phone] Daina Edwards DDS [address] [place], [place] [phone] 10/10/2024 11:00 AM CDT Appointment [address] [phone] Daina Edwards DDS [address] [place] [address] 10/11/2024 10:50 AM CDT Appointment [facility] [address] [place] [phone] Daina Edwards DDS [address] [place] [address] 10/29/2024 12:10 PM CDT Appointment [facility] [address] [place] [address] [phone] Daina Edwards DDS [address] [place] [address] documented as of this encounter Procedures Procedure [...]
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
--- OUTSIDE RECORDS SUMMARY | 2024-09-22 16:20 | XMS_ITS | Clinical Summary ---
Author Organization [facility] Address [address] [place] [address] Care Team Providers Care Semiconductor Wafers Marker Name Role Phone No Ref-Primary, Physician Primary [...] on file Legal Sex Male 4:10 AM ENGINEERING DOCUMENT CONTROL CLERK Gender Identity Not on file Sexual Orientation Not on file Last Filed Vital Signs Vital Sign Reading Time Taken Comments Blood Pressure 122/70 08/03/2018 6:30 PM ENGINEERING DOCUMENT CONTROL CLERK Pulse 46 08/03/2018 6:30 PM ENGINEERING DOCUMENT CONTROL CLERK Temperature 36.4 C (97.5 F) 08/03/2018 12:21 PM ENGINEERING DOCUMENT CONTROL CLERK Respiratory Rate 28 08/03/2018 6:30 PM ENGINEERING DOCUMENT CONTROL CLERK Oxygen Saturation 97% 08/03/2018 6:30 PM ENGINEERING DOCUMENT CONTROL CLERK Inhaled Oxygen Concentration - - Weight 112.5 kg (248 lb 0.3 oz) 019 12:21 PM ENGINEERING DOCUMENT CONTROL CLERK Height 185.4 cm (6' 1) 08/03/2018 12:2 1 PM ENGINEERING DOCUMENT CONTROL CLERK Body Mass Index 32.72 08/03/2018 12:21 PM ENGINEERING DOCUMENT CONTROL CLERK Plan of Treatment Not on file Care Teams Semiconductor Wafers Marker Relationship Specialty Start Date End Date No Ref-Primary, Physician PCP - General 01/03/13
--- OUTSIDE RECORDS SUMMARY | 2024-09-22 16:20 | XMS_ITS | Encounter Summary ---
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 DEPARTMENT 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 Gender Identity Not on file Sexual Orientation Not on file 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 Not on file Not [...] was found) Next scheduled visit: [facility] Embedded Refills, Reference: [id number], 08/17/2024 6:14:29 PM CDT, Pool: DE[facility] [[id number]] ([id number]) documented in this encounter Plan of Treatment Upcoming Encounters Date Type Department Care Team (Late st Contact Info) Description 10/01/2024 12:10 PM CDT Appointment [facility] [address] [place] [address] Daina Edwards DDGreg [address] [place], [place] [phone] 10/10/2024 11:00 AM CDT Appointment [facility] [address] [place] [phone] Daina Edwards, JENAES [address] [place] [address] 10/11/2024 10:50 AM CDT Appointment [facility] [address] [place] [phone] Daina Edwards DDS [address] [place] [address] 10/29/2024 12:10 PM CDT Appointment [facility] [address] [place] [phone] Daina Edwards DDS [address] [place] [address] documented as of this encounter Visit Diagnoses Diagnosis Erectile dysfunction, unspecified erectile dysfunction type documented in this encounter
--- OUTSIDE RECORDS SUMMARY | 2024-09-22 16:20 | XMS_ITS | Encounter Summary ---
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 Not on file Not on file documented as of this encounter Plan of Treatment Upcoming Encounters Date Type Department Care Team ([facility] Contact Info) Description 10/01/2024 12:10 PM CDT Appointment [facility] [place] [address] [place] [phone] Daina Edwards, DDS [address] [place] [address] 10/10/2024 11:00 AM CDT Appointment [facility] Dental [facility] [address] [place] [phone] Daina Edwards, DDS [address] [place] [address] 10/11/2024 10:50 AM CDT Appointment [facility] [address] [place] [phone] Daina Edwards DDS [address] [place] [address] 10/29/2024 12:10 PM CDT Appointment [facility] [address] [place] [phone] Daina Edwards, DDS [address] [place], [place] [phone] documented as of this encounter Visit Diagnoses Not on filedocumented in this encounter
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
--- OUTSIDE RECORDS SUMMARY | 2024-09-22 16:20 | XMS_ITS | Encounter Summary ---
Author Organization [facility] Address [address] [place] [address] Care Team Providers Care Senior Administrative Support Name Role Phone Thor Aguilar MD Primary Care Provider [phone] Encounter Details Date Type Department Care Team (Late Contact Info) Description 08/14/2014 Scanned History External to Transferred Record, Provider [facility] Social History Tobacco Use Types Packs/Day Years Used Date Smoking Tobacco: Every Day Smokeless Tobacco: Current Snuff Alcohol Use Standard Drinks/Week Comments No 0 (1 standard drink = 0.6 oz pur e alcohol) Sex and Gender Information Value Date Recorded Sex Assigned at Male 08/26/2024 11:28 PM CDT 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 Gender Identity Not on file Sexual Orientation Not on file documented as of this encounter Plan of Treatment Upcoming Encounters Date Type Department Care Team ([facility] Contact Info) Description 10/01/2024 12:10 PM CDT Appointment [facility] [address] [place] [phone] Daina Edwards DDS [address] [place] [address] 10/10/2024 11:00 AM CDT Appointment [facility] [address] [place] [phone] Daina Edwards DDS [address] [place], [place] [phone] 10/11/2024 10:50 AM CDT Appointment [facility] [address] [place] [phone] Daina Edwards DDS [address] [place] [address] 10/29/2024 12:10 PM CDT Appointment [facility] [address] [place] [phone] Daina Edwards DDS [address] [place], [place] [phone] documented as of this encounter Visit Diagnoses Not on filedocumented in this encounter Care Teams Senior Administrative Support Relationship Specialty [place] [address] [place] [address] PCP - General Family Practice 06/02/23 12/08/23 documented as of this encounter
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
--- OUTSIDE RECORDS SUMMARY | 2024-09-22 16:20 | XMS_ITS | Encounter Summary ---
Author Organization [facility] Address [address] [place] [address] Care Team Providers Care Dye Jig Operator Name Role Phone hTor Aguilar MD Primary Care Provider [phone] Encounter Details Date Type Department Care Team ([facility] Contact Info) Description 07/01/2014 [facility] [address] [place] [address]. 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 Gender Identity Not on file Sexual Orientation Not on file documented as of this encounter Plan of Treatment Upcoming Encounters Date Type Department Care Team ([facility] Contact Info) Description 10/01/2024 12:10 PM CDT Appointment [facility] Dental [facility] [address] [place] [phone] Daina Edwards DDS [address] [place], [place] [phone] 10/10/2024 11:00 AM CDT Appointment [facility] Dental [facility] [address] [place] [phone] Daina Edwards DDS [address] [place] [address] 10/11/2024 10:50 AM CDT Appointment [facility] [address] [place] [phone] Daina Edwards DDS [address] [place] [address] 10/29/2024 12:10 PM CDT Appointment [facility] [address] [place] [phone] Daina Edwards DDS [address] [place], [place] [phone] documented as of this encounter Visit Diagnoses Not on filedocumented in this encounter Care Teams Dye Jig Operator Relationship Specialty [place] [address] [place] [address] PCP - General Family Practice 06/02/23 12/08/23 documented as of this encounter
--- OUTSIDE RECORDS SUMMARY | 2024-09-22 16:20 | XMS_ITS | Encounter Summary ---
Author Organization [facility] Address [address], [place] [address] Care Team Providers Care Artist'S Representative Name Role Phone Unavailable Primary Care Provider Unavailabl e Reason for Visit * Reason Comments Oral Surgical Services CX all maxillary teeth * Dental (Routine) - New Request Specialty Diagnoses / Procedures Referred By Funmilayo t Referred To Contact Diagnoses Retained tooth root Daina Edwards, JENAES [address] [place] [address] Phone: tel: fax: Referral ID Status Reason Start Date Expiration Date V isits Requested Visits Authorized [id number] New Request 08/27/2024 11/26/2025 1 1 Encounter Details Date Type Department Care Team (Latest Contact Info) Description 09/10/2024 1:50 PM CDT Office Visit Oral Surgery at [facility] [address] [address] Dick Franklin, DDS [address] [place] [address] Oral Surgical Services (CX all maxillary teeth) [...] PM CDT Legal 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 documented in this encounter Plan of Treatment Upcoming Encounters Date Type Department Care Team (Late st Contact Info) Description 10/01/2024 12:10 PM CDT Appointment [facility] [place] [address] [place] [phone] Daina Edwards DDS [address] [place] [address] 10/10/2024 11:00 AM CDT Appointment [facility] [address] [place] [phone] Daina Edwards DDS [address] [place], [place] [phone] 10/11/2024 10:50 AM CDT Appointment [facility] [address] [place] [phone] Daina Edwards DDS [address] [place], [place] [phone] 10/29/2024 12:10 PM CDT Appointment [facility] [place] [address] [place] [address] Daina Edwards, DDS [address] [place] [address] Scheduled Orders Name Type Priority Associated Diagnoses [...]
--- OUTSIDE RECORDS SUMMARY | 2024-09-22 16:20 | XMS_ITS | Encounter Summary ---
Author Organization [facility] Address [address], [place] [address] Care Team Providers Care Cable Armorer Name Role Phone Unavailable Primary Care Provider Unavailabl e Reason for Visit * Reason Comments Removable Prosthetics Impressions for ma xillary immediate dentures Encounter Details Date Type Department Care Team (Late st Contact Info) Description 09/04/2024 8:10 AM CDT Office Visit [facility] [place] [address] [place] [phone] [facility] [address] [place] [address] Removable Prosthetics (Impressions for maxillary [...] PM CDT Legal 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 Gender Identity Not on file Sexual Orientation Not on file 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 Not [...] Info) Description 10/01/2024 12:10 PM CDT Appointment [facility] [place] [address] [place] [phone] Daina Edwards DDS [address] [place] [phone] 10/10/2024 11:00 AM CDT Appointment [facility] [address] [place] [phone] Daina Edwards DDS [address] [place] [address] 10/11/2024 10:50 AM CDT Appointment [facility] [address] [place] [phone] Daina Edwards DDS [address] [place], [place] [phone] 10/29/2024 12:10 PM CDT Appointment [facility] [address] [place] [phone] Daina Edwards DDS [address] [place], [place] [phone] documented as of this encounter Procedures Procedure [...]
--- OUTSIDE RECORDS SUMMARY | 2024-09-22 16:20 | XMS_ITS | Encounter Summary ---
Author Organization [facility] Address [address] [place] [address] Care Team Providers Care Leveler Name Role Phone David Lehman Primary Care Provider [phone] Juan Hernández MD Unavailable [phone] Reason for Referral * Consultation (Routine) - Open Specialty Diagnoses / Procedures Referred By Funmilayo t Referred To Contact Physical Therapy Diagnoses Diffuse myofascial pain syndrome Confusion Juan Hernández MD [address] [place] [address] Phone: tel: fax: Referral ID Status Reason Start Date Expiration Date V isits Requested Visits Authorized [id number] Open Specialty Services Required 09/17/2024 1 1 Question Answer Service to provide Physical Therapy Referral reason Evaluate and Treat * Consultation (Routine) - Open Specialty Diagnoses / Procedures Referred By Contac t Referred To Contact Physical Therapy Diagnoses Diffuse myofascial pain syndrome Confusion Juan Hernández MD [address] [place] [address] [place] [address] Phone: tel: fax: Referral ID Status Reason Start Date Expiration Date V isits Requested Visits Authorized [id number] Open Specialty Services Required 09/17/2024 1 1 Question Answer Service to provide Physical Therapy Referral reason Evaluate and Treat Reason for Visit * Reason Comments Follow up Encounter Details Date Type Department Care Team (Late st Contact Info) Description 09/17/2024 3:00 PM CDT Virtual Visit [facility] [address] [facility] [place] [address] Juan Hernández MD [address] [place] [address] Diffuse myofascial pain syndrome (Primary Dx); Confusion [...] new referral for a neuropsychologist. 3. See [facility] spine for continued management of your [...] and EMG results to Dr. White at [facility] for evaluation of surgical or [...] questions or concerns. Juan Hernández MD Neurologist, [facility] 4:19 PM 09/17/2024 This note [...] psychosis documented in this encounter Care Teams Leveler Relationship Specialty Start Date End Date David Lehman [address], [place] [address] PCP - General 05/10/24 Juan Hernández MD [address] [facility] [address] [place] [address] Neurology 05/10/24 documented as of this encounter
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
--- OUTSIDE RECORDS SUMMARY | 2024-09-22 16:20 | XMS_ITS | Encounter Summary ---
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 Gender Identity Not on file Sexual Orientation Not on file 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 on file Not [...] visit: None [facility] [employer] Embedded Refills, Reference: [id number], 09/10/2024 1:39:39 PM CDT, Pool: PN Refill Centralized Services - Primary Care [[id number]] ([id number]) documented in this encounter Plan of Treatment Upcoming Encounters Date Type Department Care Team (Late st Contact Info) Description 10/01/2024 12:10 PM CDT Appointment [address] [place] [phone] Daina Edwards S [address] [place] [address] 10/10/2024 11:00 AM CDT Appointment [address] [phone] Daina Edwards DDS [address] [place] [address] 10/11/2024 10:50 AM CDT Appointment [address] [phone] Daina Edwards DDS [address] [place] [address] 10/29/2024 12:10 PM CDT Appointment [address] [phone] Daina Edwards DDS [address] [place], [place] [phone] documented as of this encounter Visit Diagnoses Diagnosis Erectile dysfunction, unspecified erectile dysfunction type documented in this encounter
--- OUTSIDE RECORDS SUMMARY | 2024-09-22 16:20 | XMS_ITS | Encounter Summary ---
Author Organization [facility] Address [address] [place] [address] Care Team Providers Care Mill Hand Plate Mill Name Role Phone David Lehman Primary Care Provider [phone] Juan Hernández MD Unavailable [phone] Encounter Details Date Type Department Care Team (Latest Contact Info) Description 09/06/2024 1:00 PM CDT Ancillary Procedure [address] [place] [address] Diffuse myofascial pain syndrome; Skin sensation disturbance; [...] from the original result were not included. [facility] Neuro Diagnostic Services [address] [place] [address] Opt 2 Electromyography (EMG) Study Test Date: 09/06/2024 Patient: Hossein Melendez Electromyographer: Juan Hernández MD : 1980 Coagulation Operator: Helen Sex: Male Ref Phys: Juan Hernández MD Location: [place] Patient Symptoms/Indication for EMG: Patient is a 43 year-old who presents with left arm and hand numbness. Testing was performed by the [facility]'s EMG equipment and supplies. E [...] Electronically Signed By: Juan Hernández MD Neurologist, [facility] 4:55 PM 09/06/2024 Nerve [...] (generalized) documented in this encounter Care Teams Mill Hand Plate Mill Relationship Specialty Start Date End Date David Lehman [address] [place] [address] PCP - General 05/10/24 Juan Hernández MD [address] [place] [address] Neurology 05/10/24 documented as of this encounter
--- OUTSIDE RECORDS SUMMARY | 2024-09-22 16:20 | XMS_ITS | Encounter Summary ---
Author Organization [facility] Address [address] [place] [address] Care Team Providers Care Internet Marketing Director Name Role Phone David Lehman Primary Care Provider [phone] Juan Hernández MD Unavailable Encounter Details Date Type Department Care Team (Latest Contact Info) Description 09/06/2024 2:15 PM CDT Ancillary Procedure [facility] Neurology [address] [place] [address] Diffuse myofascial pain syndrome; Skin sensation disturbance; [...] not included. PATIENT NAME: Hossein Melendez LOCATION: [place] TEST DATE: 09/06/2024 : 1980 TECH NAME: [...] Electronically signed By: Juan Hernández MD Neurologist, [facility] 5:07 PM 09/06/2024 Juan Hernández MD EEG ORDERABLE Final Result documented in this encounter Visit Diagnoses Diagnosis Diffuse myofascial pain syndrome Mylagia and myositis, unspecified Skin sensation disturbance Disturbance of skin sensation Muscle weakness Muscle weakness (generalized) documented in this encounter Care Teams Internet Marketing Director Relationship Specialty Start Date End Date David Lehman [address] [place] [address] PCP - General 05/10/24 Juan Hernández MD [address] [place] [address] [address] [place] [address] Neurology 05/10/24 documented as of this encounter
--- OUTSIDE RECORDS SUMMARY | 2024-09-22 16:20 | XMS_ITS | Encounter Summary ---
Author Organization [facility] Address [address] [place] [address] Care Team Providers Care Classifier Operator Name Role Phone Unavailable Primary Care Provider Unavailabl e Reason for Referral * Dental (Routine) - New Request Specialty Diagnoses / Procedures Referred By Funmilayo hardy Referred To Contact Diagnoses Retained tooth root Daina Edwards DDS [address] [place] [address] Phone: tel: fax: Referral ID Status Reason Start Date Expiration Date V isits Requested Visits Authorized [id number] New Request 08/27/2024 11/26/2025 1 1 Scheduling Instructions Your clinician has recommended an appointment with an oral surgeon within [facility] Dental Clinics. You may call one of the clinics below to schedule an appointment. 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 [address] [place] [phone] Daina Edwards DDS [address] [place] [phone] 10/10/2024 11:00 AM CDT Appointment [facility] [address] [place] [phone] Daina Edwards, DDS [address] [place] [address] 10/11/2024 10:50 AM CDT Appointment [facility] Dental [facility] [address] [place] [phone] Daina Edwards, DDS [address] [place] [address] 10/29/2024 12:10 PM CDT Appointment [facility] [address] [place] [phone] Daina Edwards, DDS [address] [place] [address] Scheduled Orders Name Type Priority Associated Diagnoses [...]
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
[2024-09-22 16:49] VITALS: BP 172/84; PULSE 83; RESP 16; TEMP 37.8; O2SAT 98
[2024-09-22] MEDS: GI COCKTAIL (VISC LIDO/ANTACID) 30 ML PO (18:22)
--- OUTSIDE RECORDS SUMMARY | 2024-09-22 18:36 | XMS_ITS | Clinical Summary ---
Author Organization [facility] Address [address] [place] [id number] Care Team Providers Care Sales Development Consultant Name Role Phone Clinic, No Pcp Or [...] - 09/21/2024 11:59 PM CDT Hospital Encounter [facility] [address] [place] [address] Kalyan Batres MD Johnson, Claire, JEANNINE 09/14/2024 12:00 PM CDT - 09/14/2024 11:59 PM CDT Hospital Encounter [facility] [address] [place] [address] Kalyan Batres MD Johnson, Claire, OT 09/10/2024 12:45 PM CDT - 09/10/2024 11:59 PM CDT Hospital Encounter [facility] [address] [place] [address] Kalyan Batres MD Johnson, Claire, JEANNINE 09/07/2024 12:00 PM CDT - 09/07/2024 11:59 PM CDT Hospital Encounter [facility] [address] [place] [address] Kalyan Batres MD Johnson, Claire, OT 09/07/2024 Travel 09/03/2024 12:45 PM CDT - 09/03/2024 11:59 PM CDT Hospital Encounter [facility] [address] [place] [address] Kalyan Batres MD Johnson, Claire, OT 08/27/2024 2:15 PM CDT - 08/27/2024 11:59 PM CDT Hospital Encounter [facility] [address] [place] [address] Kalyan Batres MD Johnson, Claire, OT 08/07/2024 10:00 AM CDT Office Visit [facility] [address] [place] [address] Teodoro Larson, PhD, LP 08/07/2024 Travel 08/03/2024 12:00 PM SALES DEVELOPMENT CONSULTANT - 08/03/2024 11:59 PM SALES DEVELOPMENT CONSULTANT Hospital En[facility] [address] [place] [address] Kalyan Batres MD Johnson, Claire, OT 08/03/2024 Travel 07/24/2024 1:00 PM SALES DEVELOPMENT CONSULTANT Office Visit [facility] [address] [place] [address] Teodoro Larson, PhD, 07/23/2024 11:43 AM SALES DEVELOPMENT CONSULTANT - 07/23/2024 11:59 PM SALES DEVELOPMENT CONSULTANT Hospital En[facility] [address] [place] [address] Kalyan Batres MD Johnson, Claire, OT 07/23/2024 Travel 07/20/2024 12:00 PM SALES DEVELOPMENT CONSULTANT - 07/20/2024 11:59 PM SALES DEVELOPMENT CONSULTANT Hospital Encounter [facility] [address] [place] [address] Kalyan Batres MD Johnson, Claire, OT 07/20/2024 Travel 07/16/2024 11:00 AM SALES DEVELOPMENT CONSULTANT - 07/16/2024 11:59 PM SALES DEVELOPMENT CONSULTANT Hospital Encounter [facility] [address] [place] [address] Kalyan Batres MD Johnson, Claire, OT 07/13/2024 12:00 PM SALES DEVELOPMENT CONSULTANT - 07/13/2024 11:59 PM SALES DEVELOPMENT CONSULTANT Hospital Encounter [facility] [address] [place] [address] Kalyan Batres MD Johnson, Claire, OT 07/13/2024 Travel 07/09/2024 1:15 PM SALES DEVELOPMENT CONSULTANT - 07/09/2024 11:59 PM SALES DEVELOPMENT CONSULTANT [facility] [address] [place] [address] Kalyan Batres MD Johnson, Claire, OT 07/02/2024 11:45 AM SALES DEVELOPMENT CONSULTANT - 07/02/2024 11:59 PM SALES DEVELOPMENT CONSULTANT [facility] [address] [place] [address] Kalyan Batres MD Johnson, Claire, OT 06/29/2024 12:00 PM SALES DEVELOPMENT CONSULTANT - 06/29/2024 11:59 PM SALES DEVELOPMENT CONSULTANT Hospital Encounter [facility] [address] [place] [address] Referring, Provider Sakshi Santos, OT 06/29/2024 Travel 06/25/2024 11:45 AM SALES DEVELOPMENT CONSULTANT - 06/25/2024 11:59 PM SALES DEVELOPMENT CONSULTANT Hospital Encounter [facility] [address] [place] [address] Referring, Provider Sakshi Santos, OT from Last 3 Months Social History Tobacco Use Types Packs/Day Years Used Date Smoking Tobacco: Never Smokeless Tobacco: Never Sex and Gender Information Value Date Recorded Sex Assigned at Not on file Legal Sex Male 6:58 PM SALES DEVELOPMENT CONSULTANT Gender Identity Not on file Sexual Orientation [...] Description 09/24/2024 12:45 PM CDT [facility] [address] [facility] [address] [place] [address] Sakshi Santos, OT [address] [facility] [address] [place] [address] 09/28/2024 12:00 PM CDT Appointment [facility] [address] [facility] [address] [place] [address] Sakshi Santos OT [address] [address] 10/10/2024 11:30 AM CDT Office Visit [facility] [address] [place] [address] [place] [address] [facility] [address] [place] [address] 12/05/2024 2:20 PM CDT Office Visit [facility] [address], [place] [address] [place] [address] [facility] [address] [place] [address] Health Maintenance Due Date Last Done Comments [...] this topic Insurance DISTINCTIONS DISTINCTIONS [place]IKET [place] [id number] [employer] [place] [place] [id number] Care Teams Sales Development Consultant Relationship Specialty Start Date End Date Clinic, No Pcp Or . PCP - General 10/04/20
--- OUTSIDE RECORDS SUMMARY | 2024-09-22 18:37 | XMS_ITS | Encounter Summary ---
Author Organization [facility] Address [address] [address] Care Team Providers Care Shoes Salesperson Name Role Phone Unavailable Primary Care Provider Unavailabl e Reason for Visit * Reason Comments Removable Prosthetics Impressions for ma xillary immediate dentures Encounter Details Date Type Department Care Team (Late st Contact Info) Description 09/04/2024 8:10 AM CDT Office Visit [facility] [place] [phone] [place] [phone] [facility] [address] [place] [address] Removable Prosthetics (Impressions for maxillary [...] PM CDT Legal Sex 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 Gender Identity Not on file Sexual Orientation Not on file 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 Not on file Not [...] Info) Description 10/01/2024 12:10 PM CDT Appointment [facility] [place] [address] [place] [phone] Daina Edwards DDS [address] [place] [phone] 10/10/2024 11:00 AM CDT Appointment [facility] [address] [place] [phone] Daina Edwards DDS [address] [place] [address] 10/11/2024 10:50 AM CDT Appointment [facility] [address] [place] [phone] Daina Edwards DDS [address] [place], [place] [phone] 10/29/2024 12:10 PM CDT Appointment [facility] [address] [place] [phone] Daina Edwards DDS [address] [place], [place] [phone] documented as of this encounter Procedures Procedure [...]
--- OUTSIDE RECORDS SUMMARY | 2024-09-22 18:37 | XMS_ITS | Encounter Summary ---
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 AIRLINE HOSTESS Gender Identity Not on file Sexual Orientation Not on file 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 Not on file Not on file documented as of this encounter Plan of Treatment Upcoming Encounters Date Type Department Care Team ([facility] Contact Info) Description 10/01/2024 12:10 PM CDT Appointment [facility] [place] [address] [place] [phone] Daina Edwards, DDS [address] [place] [address] 10/10/2024 11:00 AM CDT Appointment [facility] Dental [facility] [address] [place] [phone] Dain[place] Edwards, DDS [address] [place] [address] 10/11/2024 10:50 AM CDT Appointment [facility] [address] [place] [phone] Daina Edwards DDS [address] [place] [address] 10/29/2024 12:10 PM CDT Appointment [facility] Dental [facility] [address] [place] [phone] Daina Edwards, DDS [address] [place], [place] [phone] documented as of this encounter Visit Diagnoses Not on filedocumented in this encounter
--- OUTSIDE RECORDS SUMMARY | 2024-09-22 18:37 | XMS_ITS | Clinical Summary ---
Author Organization [facility] Address [address] [place] [address] Care Team Providers Care Shelter Supervisor Name Role Phone Unavailable Primary Care Provider Unavailabl e Source Comments You are receiving this document as you are listed as the primary care provider,follow-up provider, or the patient has been referred to you for consultation.This is in compliance with the Medicare and[facility] Cent[facility] EHR Incentive Program,which states Providers who transition their patient to another setting of careor provider of care or refers their patient to another provider of care shouldprovide summary care record for each transition of care or referral. [facility] Allergies Active Allergy Reactions Criticality Noted Date [...] Description 09/20/2024 10:40 AM CDT Office Visit [facility] [address] [address] Daina Edwards DDS Removable Prosthetics (Bite registration ) 09/13/2024 12:10 PM CDT Office Visit [facility] [address] [place] [phone] Daina Edwards DDS Removable Prosthetics (Upper denture final impression) 09/10/2024 1:50 PM CDT Office Visit Oral Surgery at [facility] [address] [place] [address] Dick Franklin DDS Oral Surgical Services (CX all maxillary teeth) 09/10/2024 Refill [place] [address] [facility] [address] [place] [phone] Joe Patiño MD Refill (sildenafil (VIAGRA) 25 MG tablet [Pharmacy Med Name: SILDENAFIL 25 MG TABLET]) 09/04/2024 8:10 AM CDT Office Visit [address] [address] Daina Edwards DDS Removable Prosthetics (Impressions for maxillary immediate dentures ) 08/27/2024 12:10 PM CDT Office Visit [address] [address] Daina Edwadrs DDS Problem Focused Exam (Pain upper right and upper front ) 08/24/2024 Telephone [facility] Unassigned, Provider Broken Tooth 08/17/2024 Refill [place] [address] [place] [phone] Cielo Murphy PA-C Refill (sildenafil (VIAGRA) 25 [...] PM CDT Legal Sex Male 8:01 AM TIN PLATER Gender Identity Not on file Sexual Orientation Not on file 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 on file Not [...] Info) Description 10/01/2024 12:10 PM CDT Appointment [facility] [address] [place] [phone] Daina Edwards DDS [address] [place], [place] [phone] 10/10/2024 11:00 AM CDT Appointment [facility] [address] [place] [phone] Daina Edwards DDS [address] [place] [address] 10/11/2024 10:50 AM CDT Appointment [facility] [address] [place] [phone] Daina Edwards, DDS [address] [place], [place] [phone] 10/29/2024 12:10 PM CDT Appointment [facility] [address] [place] [phone] Daina Edwards, DDS [address] [place], [place] [phone] Health Maintenance Due Date Last Done Comments [...] LDL (IF NEEDED) Routine 06/15/2012 11:03 AM TIN PLATER Screening for lipoid disorders HEPATITIS C ANTIBODY, WITH REFLEX Routine 11/07/2008 12:52 PM CDT from Last 3 Months or Most Recently Relevant to Health Maintenance Results * LIPID PANEL AND DIRECT LDL(IF NEEDED) (06/15/2012 11:03 AM TIN PLATER) Cholesterol 120 0 - 199 mg/dl [facility] Triglyceride 62 0 - 149 mg/dl [facility] HDL 49 >40 mg/dl [facility] LDL, Calc. 59 0 - 129 mg/dl [facility] Non HDL Chol, Calc 71 mg/dl [facility] Hours Fasting 12 hours [facility] 06/15/2012 11:0 3 AM TIN PLATER 06/15/2012 11:04 AM TIN PLATER us Jamilah Beal MD LAB_1 Final Resul t [facility] [address] [place] [phone] * Hepatitis C Antibody, with Reflex (11/07/2008 12:52 PM CDT) Hepatitis C Antibody Non Reac Non Reac [facility] CONVERSION 11/07/2008 12:5 2 PM CDT Cj Elkinsnson BAKERY MANAGER, CABINET BUILDER LAB_1 Autumn l Result HP CONVERSION from Last 3 Months or Most Recently Relevant to Health Maintenance Insurance HP SELF INSURED HP SELF INSURED [facility] COMM [facility] SELF INSURED SELF INSURED
--- OUTSIDE RECORDS SUMMARY | 2024-09-22 18:37 | XMS_ITS | Encounter Summary ---
Author Organization [facility] Address [address] [place] [address] Care Team Providers Care Wheel Press Operator Name Role Phone David Lehman Primary Care Provider [phone] Juan Hernández MD Unavailable Reason for Referral * Consultation (Routine) - Open Specialty Diagnoses / Procedures Referred By Funmilayo t Referred To Contact Physical Therapy Diagnoses Diffuse myofascial pain syndrome Confusion Juan Hernández MD [address] [place] [address] Phone: tel: fax: Referral ID Status Reason Start Date Expiration Date V isits Requested Visits Authorized [id number] Open Specialty Services Required 09/17/2024 1 1 Question Answer Service to provide Physical Therapy Referral reason Evaluate and Treat * Consultation (Routine) - Open Specialty Diagnoses / Procedures Referred By Contac t Referred To Contact Physical Therapy Diagnoses Diffuse myofascial pain syndrome Confusion Juan Hernández MD [address] [place] [address] [place] [address] Phone: tel: fax: Referral ID Status Reason Start Date Expiration Date V isits Requested Visits Authorized [id number] Open Specialty Services Required 09/17/2024 1 1 Question Answer Service to provide Physical Therapy Referral reason Evaluate and Treat Reason for Visit * Reason Comments Follow up Encounter Details Date Type Department Care Team (Late st Contact Info) Description 09/17/2024 3:00 PM CDT [facility] [address] [place] [place] [address] Juan Hernández MD [address] [place] [address] [place] [address] Diffuse myofascial pain syndrome (Primary Dx); Confusion [...] new referral for a neuropsychologist. 3. See [facility] spine for continued management of your [...] and EMG results to Dr. White at [facility] for evaluation of surgical or [...] questions or concerns. Juan Hernández MD Neurologist, [facility] 4:19 PM 09/17/2024 This note [...] psychosis documented in this encounter Care Teams Wheel Press Operator Relationship Specialty Start Date End Date David Lehman [address] [address] PCP - General 05/10/24 Juan Hernández MD [address] [place] [address] [place] [address] Neurology 05/10/24 documented as of this encounter
--- OUTSIDE RECORDS SUMMARY | 2024-09-22 18:37 | XMS_ITS | Encounter Summary ---
Author Organization [facility] Address [address] [address] Care Team Providers Care National Stormwater Leader Name Role Phone Unavailable Primary Care Provider Unavailabl e Reason for Visit * Reason Comments Removable Prosthetics Bite registration Encounter Details Date Type Department Care Team (Late st Contact Info) Description 09/20/2024 10:40 AM CDT Office Visit [facility] [place] [address] [place] [phone] Daina Edwards, DDS [address] [place] [address] Removable Prosthetics (Bite registration ) [...] PM CDT Legal Sex Male 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 Gender Identity Not on file Sexual Orientation Not on file 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 Not on file [...] Info) Description 10/01/2024 12:10 PM CDT Appointment [facility] [place] [address] [place] [phone] Daina Edwards DDS [address] [place] [address] 10/10/2024 11:00 AM CDT Appointment [facility] [address] [place] [address] Daina Edwards DDS [address] [place] [address] 10/11/2024 10:50 AM CDT Appointment [facility] [address] [place] [address] Daina Edwards DDS [address] [place] [address] 10/29/2024 12:10 PM CDT Appointment [facility] [address] [place] [address] Daina Edwards DDS [address] [place] [address] documented as of this encounter Procedures Procedure [...]
--- OUTSIDE RECORDS SUMMARY | 2024-09-22 18:37 | XMS_ITS | Encounter Summary ---
Author Organization [facility] Address [address] [place] [address] Care Team Providers Care Tank Insulator Rubber Name Role Phone Unavailable Primary Care Provider Unavailabl e Reason for Referral * Dental (Routine) - New Request Specialty Diagnoses / Procedures Referred By Funmilayo hardy Referred To Contact Diagnoses Retained tooth root Daina Edwards DDS [address] [place] [address] Phone: tel: fax: Referral ID Status Reason Start Date Expiration Date V isits Requested Visits Authorized [id number] New Request 08/27/2024 11/26/2025 1 1 Scheduling Instructions Your clinician has recommended an appointment with an oral surgeon within [facility]. You may call one of the clinics below to schedule an appointment. 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 Gender Identity Not on file Sexual Orientation Not on file 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 Not on file Not [...] Info) Description 10/01/2024 12:10 PM CDT Appointment [facility] [address] [place] [phone] Daina Edwards DDS [address] [place] [phone] 10/10/2024 11:00 AM CDT Appointment [facility] [address] [place] [phone] Dain[place] Edwards, DDS [address] [place] [address] 10/11/2024 10:50 AM CDT Appointment [facility] [address] [place] [address] [place] D[place] [address] [place] [address] 10/29/2024 12:10 PM CDT Appointment [facility] [address] [place] [phone] [place] DDS [address] [place] [address] Scheduled Orders Name Type Priority Associated Diagnoses [...]
--- OUTSIDE RECORDS SUMMARY | 2024-09-22 18:37 | XMS_ITS | Encounter Summary ---
Author Organization [facility] Address [address] [place] [address] Care Team Providers Care Wellness Director Name Role Phone Unavailable Primary Care Provider Unavailabl e Reason for Visit * Reason Comments Refill sildenafil (VIAGRA) 25 MG tablet [Pharmacy Med Name: SILDENAFIL 25 MG TABLET] Encounter Details Date Type Department Care Team (Late st Contact Info) Description 09/10/2024 Refill [place] [address] Family Medicine [address] [place] [phone] [place] [address] [place] [address] Refill (sildenafil (VIAGRA) 25 MG [...] PM CDT Legal 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 Male 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 Gender Identity Not on file Sexual Orientation Not on file 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 on 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 Not [...] visit: None [facility] Embedded Refills, Reference: [id number], 09/10/2024 1:39:39 PM CDT, Pool: PN Refill Centralized Services - Primary Care [[id number]] ([id number]) documented in this encounter Plan of Treatment Upcoming Encounters Date Type Department Care Team (Late st Contact Info) Description 10/01/2024 12:10 PM CDT Appointment [address] [place] [phone] Daina Edwards S [address] [place] [address] 10/10/2024 11:00 AM CDT Appointment [address] [phone] Daina Edwards DDS [address] [place] [address] 10/11/2024 10:50 AM CDT Appointment [address] [phone] Daina Edwards DDS [address] [place] [address] 10/29/2024 12:10 PM CDT Appointment [address] [phone] Daina Edwards DDS [address] [place], [place] [phone] documented as of this encounter Visit Diagnoses Diagnosis Erectile dysfunction, unspecified erectile dysfunction type documented in this encounter
--- OUTSIDE RECORDS SUMMARY | 2024-09-22 18:37 | XMS_ITS | Encounter Summary ---
Author Organization [facility] Address [address] [place] [address] Care Team Providers Care Emissions Testing And Repair Technician Name Role Phone Unavailable Primary Care Provider Unavailabl e Reason for Visit * Reason Comments Refill sildenafil (VIAGRA) 25 MG tablet [Pharmacy Med Name: SILDENAFIL 25 MG TABLET] Encounter Details Date Type Department Care Team (Late st Contact Info) Description 08/17/2024 Refill [place] [address] Family Medicine [address] [place] [phone] Cielo Agee PA-C [address] [place] [address] Refill (sildenafil (VIAGRA) 25 MG [...] PM CDT Legal Sex Male 8:01 AM WARP PLACER Gender Identity Not on file Sexual Orientation Not on file 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 on file Not [...] was found) Next scheduled visit: None [facility] Embedded Refills, Reference: [id number], 08/17/2024 6:14:29 PM CDT, Pool: DEBBI [place] Centralized Services - Primary Care [[id number]] ([id number]) documented in this encounter Plan of Treatment Upcoming Encounters Date Type Department Care Team (Late st Contact Info) Description 10/01/2024 12:10 PM CDT Appointment [facility] [address] [place] [address] Daina Edwards DDGreg [address] [place], [place] [phone] 10/10/2024 11:00 AM CDT Appointment [facility] [address] [place] [address] Daina Edwards, JENAES [address] [place] [address] 10/11/2024 10:50 AM CDT Appointment [facility] [address] [place] [phone] Daina Edwards DDS [address] [place] [address] 10/29/2024 12:10 PM CDT Appointment [facility] [address] [place] [phone] Daina Edwards DDS [address] [place] [address] documented as of this encounter Visit Diagnoses Diagnosis Erectile dysfunction, unspecified erectile dysfunction type documented in this encounter
--- OUTSIDE RECORDS SUMMARY | 2024-09-22 18:37 | XMS_ITS | Encounter Summary ---
Author Organization [facility] Address [address] [place] [address] Care Team Providers Care Waterworks Pump Station Operator Name Role Phone Thor Aguilar MD Primary Care Provider [phone] Encounter Details Date Type Department Care Team (Late Contact Info) Description 08/14/2014 Scanned History External to Transferred Record, Provider [facility] Social History Tobacco Use Types Packs/Day Years Used Date Smoking Tobacco: Every Day Smokeless Tobacco: Current Snuff Alcohol Use Standard Drinks/Week Comments No 0 (1 standard drink = 0.6 oz pur e alcohol) Sex and Gender Information Value Date Recorded Sex Assigned at Male 08/26/2024 11:28 PM CDT 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 [address] [place] [phone] Daina Edwards DDS [address] [place] [address] 10/10/2024 11:[address] [facility] [address] [place] [phone] Daina Edwards DDS [address] [place], [place] [phone] 10/11/2024 10:[address] [facility] [address] [place] [phone] Daina Edwards DDS [address] [place] [address] 10/29/2024 12:[address] [facility] [address] [place] [phone] Daina Edwards DDS [address] [place], [place] [phone] documented as of this encounter Visit Diagnoses Not on filedocumented in this encounter Care Teams Waterworks Pump Station Operator Relationship Specialty [place] [address] [place] [address] PCP - General Family Practice 06/02/23 12/08/23 documented as of this encounter
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
--- OUTSIDE RECORDS SUMMARY | 2024-09-22 18:37 | XMS_ITS | Clinical Summary ---
Author Organization [facility] Address [address] [place] [address] Care Team Providers Care Making Machine Operator Name Role Phone No Ref-Primary, Physician Primary [...] on file Legal Sex Male 4:10 AM INDIAN TRADER Gender Identity Not on file Sexual Orientation Not on file Last Filed Vital Signs Vital Sign Reading Time Taken Comments Blood Pressure 122/70 08/03/2018 6:30 PM INDIAN TRADER Pulse 46 08/03/2018 6:30 PM INDIAN TRADER Temperature 36.4 C (97.5 F) 08/03/2018 12:21 PM INDIAN TRADER Respiratory Rate 28 08/03/2018 6:30 PM INDIAN TRADER Oxygen Saturation 97% 08/03/2018 6:30 PM INDIAN TRADER Inhaled Oxygen Concentration - - Weight 112.5 kg (248 lb 0.3 oz) 019 12:21 PM INDIAN TRADER Height 185.4 cm (6' 1) 08/03/2018 12:2 1 PM INDIAN TRADER Body Mass Index 32.72 08/03/2018 12:21 PM INDIAN TRADER Plan of Treatment Not on file Care Teams Making Machine Operator Relationship Specialty Start Date End Date No Ref-Primary, Physician PCP - General 01/03/13
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
--- OUTSIDE RECORDS SUMMARY | 2024-09-22 18:37 | XMS_ITS | Encounter Summary ---
Author Organization [facility] Address [address] [place] [address] Care Team Providers Care Measurement Specialist Name Role Phone David Lehman Primary Care Provider [phone] Juan Hernández MD Unavailable [phone] Encounter Details Date Type Department Care Team (Latest Contact Info) Description 09/06/2024 1:00 PM CDT Ancillary Procedure [address] [place] [address] Diffuse myofascial pain syndrome; Skin sensation disturbance; [...] from the original result were not included. [facility] [address] [place] [address] Opt 2 Electromyography (EMG) Study Test Date: 09/06/2024 Patient: Hossein Melendez Electromyographer: Juan Hernández MD : 1980 Internist Medical Doctor Md: Helen Sex: Male Ref Phys: Juan Hernández MD Location: [employer] Patient Symptoms/Indication for EMG: Patient is a 43 year-old who presents with left arm and hand numbness. Testing was performed by the [facility]'s EMG equipment and supplies. [...] Electronically Signed By: Juan Hernández MD Neurologist, [facility] 4:55 PM 09/06/2024 Nerve [...] (generalized) documented in this encounter Care Teams Measurement Specialist Relationship Specialty Start Date End Date David Lehman [address] [place] [address] PCP - General 05/10/24 Juan Hernández MD [address] [place] [address] Neurology 05/10/24 documented as of this encounter
--- OUTSIDE RECORDS SUMMARY | 2024-09-22 18:37 | XMS_ITS | Encounter Summary ---
Author Organization [facility] Address [address] [place] [address] Care Team Providers Care Senior Treasury Analyst Name Role Phone Thor Aguilar MD Primary Care Provider [phone] Encounter Details Date Type Department Care Team ([facility] Contact Info) Description 07/01/2014 [facility] [address] [place] [address]. 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 Gender Identity Not on file Sexual Orientation Not on file documented as of this encounter Plan of Treatment Upcoming Encounters Date Type Department Care Team ([facility] Contact Info) Description 10/01/2024 12:10 PM CDT Appointment [facility] [address] [place] [phone] Daina Edwards DDS [address] [place], [place] [phone] 10/10/2024 11:00 AM CDT Appointment [facility] [address] [place] [phone] Daina Edwards DDS [address] [place] [address] 10/11/2024 10:50 AM CDT Appointment [facility] [address] [place] [phone] Daina Edwards DDS [address] [place] [address] 10/29/2024 12:10 PM CDT Appointment [facility] [address] [place] [phone] Daina Edwards DDS [address] [place], [place] [phone] documented as of this encounter Visit Diagnoses Not on filedocumented in this encounter Care Teams Senior Treasury Analyst Relationship Specialty [place] [address] [place] [address] PCP - General Family Practice 06/02/23 12/08/23 documented as of this encounter
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
--- OUTSIDE RECORDS SUMMARY | 2024-09-22 18:37 | XMS_ITS | Encounter Summary ---
Author Organization [facility] Address [address] [place] [address] Care Team Providers Care Body Piercer Name Role Phone David Lehman Primary Care Provider [phone] Juan Hernández MD Unavailable Encounter Details Date Type Department Care Team (Latest Contact Info) Description 09/06/2024 2:15 PM CDT Ancillary Procedure [facility] [address] [place] [address] Diffuse myofascial pain syndrome; Skin sensation disturbance; [...] not included. PATIENT NAME: Hossein Melendez LOCATION: [place] TEST DATE: 09/06/2024 : 1980 TECH NAME: [...] specific epileptiform activity. Electronically signed By: Juan Hrenández MD Neurologist, [facility] 5:07 PM 09/06/2024 Juan Hernández MD EEG ORDERABLE Final Result documented in this encounter Visit Diagnoses Diagnosis Diffuse myofascial pain syndrome Mylagia and myositis, unspecified Skin sensation disturbance Disturbance of skin sensation Muscle weakness Muscle weakness (generalized) documented in this encounter Care Teams Body Piercer Relationship Specialty Start Date End Date David Lehman [address] [place] [address] PCP - General 05/10/24 Juan Hernández MD [address] [place] [address] [address] [place] [address] Neurology 05/10/24 documented as of this encounter
--- OUTSIDE RECORDS SUMMARY | 2024-09-22 18:37 | XMS_ITS | Encounter Summary ---
Author Organization [facility] Address [address], [place] [address] Care Team Providers Care Celery Wrapper Name Role Phone Unavailable Primary Care Provider Unavailabl e Reason for Visit * Reason Comments Oral Surgical Services CX all maxillary teeth * Dental (Routine) - New Request Specialty Diagnoses / Procedures Referred By Funmilayo t Referred To Contact Diagnoses Retained tooth root Daina Edwards, JENAES [address] [place] [address] Phone: tel: fax: Referral ID Status Reason Start Date Expiration Date V isits Requested Visits Authorized [id number] New Request 08/27/2024 11/26/2025 1 1 Encounter Details Date Type Department Care Team (Latest Contact Info) Description 09/10/2024 1:50 PM CDT Office Visit Oral Surgery at [facility] [address] [address] Dick Franklin, DDS [address] [place] [address] Oral Surgical Services (CX all maxillary teeth) [...] CDT 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 documented in this encounter Plan of Treatment Upcoming Encounters Date Type Department Care Team (Late st Contact Info) Description 10/01/2024 12:10 PM CDT Appointment [facility] [id number] [place] [phone] Daina Edwards DDS [address] [place] [address] 10/10/2024 11:00 AM CDT Appointment [facility] [address] [place] [phone] Daina Edwards DDS [address] [place], [place] [phone] 10/11/2024 10:50 AM CDT Appointment [facility] [address] [place] [phone] Daina Edwards DDS [address] [place], [place] [phone] 10/29/2024 12:10 PM CDT [facility] [place] [address] [place] [phone] Daina Edwards, DDS [address] [place] [address] Scheduled Orders Name Type Priority Associated Diagnoses [...]
--- OUTSIDE RECORDS SUMMARY | 2024-09-22 18:37 | XMS_ITS | Encounter Summary ---
Author Organization [facility] Address [address] [address] Care Team Providers Care Assistant Professor Of Life Sciences Name Role Phone Unavailable Primary Care Provider Unavailabl e Reason for Visit * Reason Comments Removable Prosthetics Upper denture kelsey l impression Encounter Details Date Type Department Care Team (Late st Contact Info) Description 09/13/2024 12:10 PM CDT Office Visit [facility] [address] [place] [phone] [facility] [address] [place] [address] Removable Prosthetics (Upper denture final [...] PM CDT Legal 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 Call your dental clinic at [phone] if you have questions or concerns. [facility] hours [facility] by calling [facility] at [phone], evenings and weekends. documented in this encounter [...] Info) Description 10/01/2024 12:10 PM CDT Appointment [facility] [address] [place] [phone] Daina Edwards DDS [address] [place], [place] [phone] 10/10/2024 11:00 AM CDT Appointment [address] [phone] Daina Edwards DDS [address] [place] [address] 10/11/2024 10:50 AM CDT Appointment [facility] [address] [place] [phone] Daina Edwards DDS [address] [place] [address] 10/29/2024 12:10 PM CDT Appointment [facility] [phone] [place] [phone] Daina Edwards DDS [address] [place] [address] documented as of this encounter Procedures Procedure [...]
[2024-09-22 23:05] LABS: C.Difficile Negative (Negative); CDIFFEPI 027 PRESUMPTIVE NEGATIVE (Negative)
== END 2024-09-22 18:48 | disposition home or self-care (01) ==
LOC: ED 18:34
PROVIDERS: Emergency Provider Emergency Medicine; PCP Family Medicine
DX: F45.8 Other somatoform disorders (principal); R19.5 Other fecal abnormalities; Z87.820 Personal history of traumatic brain injury
CPT/HCPCS: 87045; 87046; 87427; 87493; 99283; 99284; A9270

== ENCOUNTER 2024-09-27 12:25 | Outpatient (CLI) | payer OTHER, SELFPAY ==
--- NOTE | 2024-09-27 12:43 | P.ANES_ITS ---
Anesthesia Charges Start Date/Time Anesthesia Start Date: 09/27/24 Anesthesia Start Time: 13:00 Stop Date/Time Anesthesia Stop Date: 09/27/24 Anesthesia Stop Time: 13:21 Coding CPT Codes CPT Codes: ANES UPR GI NDSC PX NOS - 60427 ([id number]) P3 - PATIENT W/SEVERE SYS DISEASE, QK - DIRECTOR SOFTWARE QUALITY ASSURANCE 2-4 CNCRNT ANES PROC, QX - PHOTOGRAPH PRINTER SVC W/ MD MED DIRECTION
--- NOTE | 2024-09-27 12:43 | W.ANESCHARGE ---
Anesthesia Charges Start Date/Time Anesthesia Start Date: 09/27/24 Anesthesia Start Time: 13:00 Stop Date/Time Anesthesia Stop Date: 09/27/24 Anesthesia Stop Time: 13:21 Coding CPT Codes CPT Codes: ANES UPR GI NDSC PX NOS - 92819 ([id number]) P3 - PATIENT W/SEVERE SYS DISEASE, QK - LEAD WEB DEVELOPER 2-4 CNCRNT ANES PROC, QX - PATIENT FINANCIAL SERVICES COORDINATOR SVC W/ MD MED DIRECTION
--- NOTE | 2024-09-27 13:22 | P.ANES_ITS ---
Anesthesia Charges Start Date/Time Anesthesia Start Date: 09/27/24 Anesthesia Start Time: 13:00 Stop Date/Time Anesthesia Stop Date: 09/27/24 Anesthesia Stop Time: 13:21 Coding CPT Codes CPT Codes: ANES UPR GI NDSC PX NOS - 03243 ([id number]) P3 - PATIENT W/SEVERE SYS DISEASE, QX - DIE HOLDER SVC W/ MD MED DIRECTION, QK - MEDICAL DIRECTOR/HEAD TEAM PHYSICIAN 2-4 CNCRNT ANES PROC
--- NOTE | 2024-09-27 13:22 | W.ANESCHARGE ---
Anesthesia Charges Start Date/Time Anesthesia Start Date: 09/27/24 Anesthesia Start Time: 13:00 Stop Date/Time Anesthesia Stop Date: 09/27/24 Anesthesia Stop Time: 13:21 Coding CPT Codes CPT Codes: ANES UPR GI NDSC PX NOS - 32071 ([id number]) P3 - PATIENT W/SEVERE SYS DISEASE, QX - VARIETY PERFORMER SVC W/ MD MED DIRECTION, QK - SOUND EQUIPMENT MECHANIC 2-4 CNCRNT ANES PROC
== END 2024-09-27 12:26 | disposition home or self-care (01) ==
LOC: OP CLINIC 12:26
PROVIDERS: PCP Family Medicine; Visit Provider Surgery
DX: R13.10 Dysphagia, unspecified (principal); K31.89 Other diseases of stomach and duodenum
CPT/HCPCS: 00731; 43239; 88305; J2704; J3490